=== PATIENT | male | born 1985 | race Caucasian/White ===

== ENCOUNTER 2019-01-31 23:06 | Inpatient (IN) ==
[2019-01-31] MEDS ORDERED: HYDROmorphone INJ 1 MG/ML SYRINGE IV STA (23:26)
[2019-01-31] MEDS ORDERED: ONDANSETRON INJ 2 MG/ML 2 ML VIAL IV STA (23:26)
[2019-01-31] MEDS ORDERED: SODIUM CHLORIDE 0.9% 1000ML 1,000 ML IV ONE (23:26)
[2019-01-31] MEDS ORDERED: PIPERACILLIN/TAZOBACTAM 4.5 GM/120 ML BAG IV ONE (23:33)
[2019-01-31] MEDS ORDERED: PIPERACILL/TAZOBAC CONSULT ACTIVE PRN (23:33)
[2019-01-31 23:58] LABS: Basophils # (auto) 0.03 K/uL (0-0.2); Basophils % (auto) 0.2 %; Eosinophils # (auto) 0.01 K/uL (0-0.5); Eosinophils % (auto) 0.1 %; Hematocrit (blood only) 41.2 % (42-52); Hemoglobin 14.5 g/dL (14.0-18.0); Immature Granulocytes # (auto) 0.04 K/uL (0.00-0.02); Immature Granulocytes % (auto) 0.2 %; Lymphocytes # (auto) 0.89 K/uL (1.2-3.4); Lymphocytes % (auto) 4.8 %; Mean Corpuscular Hemoglobin 29.5 pg (25-34); Mean Corpuscular Hgb Conc 35.2 g/dL (32-36); Mean Corpuscular Volume 83.9 fL (80-100); Mean Platelet Volume 10.7 fL (7.4-10.4); Monocytes # (auto) 1.11 K/uL (0.11-0.59); Neutrophils # (auto) 16.42 K/uL (1.4-6.5); Neutrophils % (auto) 88.7 %; Platelet Count 165 K/uL (130-400); RDW Coefficient of Variation 13.3 % (11.5-14.5); RDW Standard Deviation 40.3 fL (36.4-46.3); Red Blood Count 4.91 M/uL (4.7-6.1)
[2019-02-01 00:17] LABS: Albumin Level 3.9 gm/dl (3.4-5.0); BUN Creatinine Ratio 11.3 (10-20); Bilirubin Direct 0.4 mg/dl (0-0.2); Calcium 9.3 mg/dl (8.5-10.1); Creatinine Clr Calc Pharmacy 128.7 ml/min; Est GFR (African American) 122.1; Est GFR (Non-African American) 105.4; Potassium 3.4 mmol/L (3.5-5.1)
[2019-02-01] MEDS ORDERED: HYDROmorphone INJ 1 MG/ML SYRINGE IV STA (00:18)
[2019-02-01 00:20] LABS: Bilirubin,Total 2.3 mg/dl (0.2-1); Total Protein 7.3 gm/dl (6.4-8.2)
[2019-02-01 00:38] LABS: Appearance Urine Clear (Clear); Bacteria Urine Automated Negative (Negative); Bilirubin Urine Negative (Negative); Blood Urine Negative (Negative); Color Urine Yellow; Glucose Urine UA Negative (Negative); Leukocyte Esterase Urine 1+ (Negative); Nitrite Urine Negative (Negative); Protein Urine Negative (Negative); RBC Urine Automated 0-4 /hpf (0-4); Urobilinogen Urine Negative (Negative)
[2019-02-01 00:41] LABS: Ketones Urine 3+ (Negative)
[2019-02-01] MEDS ORDERED: SODIUM CHLORIDE 0.9% 1000ML 1,000 ML IV ONE (00:56)
[2019-02-01] MEDS ORDERED: ACETAMINOPHEN 325 MG TAB PO PRN (01:41)
[2019-02-01] MEDS ORDERED: POTASSIUM CHLORIDE 20 MEQ TABCR PO STA (01:41)
[2019-02-01] MEDS ORDERED: PIPERACILL/TAZOBAC CONSULT ACTIVE PRN (01:41)
[2019-02-01] MEDS: D5W AND NSS 1,000 ML IV SCH ×3 (02:18→19:30)
--- NOTE | 2019-02-01 02:44 | History and Physical Report ---
DATE OF ADMISSION: 02/01/2019 CHIEF COMPLAINT: Acute sigmoid diverticulitis. HISTORY OF PRESENT ILLNESS: A 33-year-old male with past medical history significant for constipation, history of epilepsy, no longer on medications, the last time he had a seizure was about more than 10 years ago. Since his PCP retired, he is not following with any doctors. He presents with lower abdominal pain. The patient developed lower abdominal pain yesterday morning around 4:00, came to the ER around 5:00 a.m. and was diagnosed with acute sigmoid diverticulitis and his pain improved and he did fine and he was discharged home on Cipro and Flagyl around 11:00 a.m. The patient says after going home, he did okay, but later in the evening in the dinnertime when he ate plain rice and broth, the abdominal pain came back and it was severe than in the morning associated with some nausea, feeling sweaty and cold, but denies any fever or chills. The last bowel movement was yesterday morning, it was diarrhea, no blood in the stools or black stools. Says the pain was severe, so he came back here and his white count went up from 15,000 to 18,000. Otherwise hemodynamics are stable, so we are called for admission for IV antibiotics. Currently, the patient's pain is under control. Resting comfortably. Denies any other complaints. Denies any headache, no blurred vision, no dizziness, no runny nose, no sore throat. Appetite is otherwise okay. No chest pain,. Getting short of breath because of pain and when he coughs, has severe pain in the lower abdomen. Normal bladder movements. No hematuria. He says he has some burning micturition. No swelling in the legs, no rash. Otherwise, he is active. Lives with his . ALLERGIES: No known drug allergies. PAST MEDICAL HISTORY: As mentioned above. PAST SURGICAL HISTORY: Denies any surgeries. MEDICATIONS: On Cipro and Flagyl. FAMILY HISTORY: Significant for father has diverticulosis, mother's side of family has colon cancer. SOCIAL HISTORY: Denies smoking, alcohol occasionally. No drug use. REVIEW OF SYSTEMS: As per HPI. Rest of review of systems negative. PHYSICAL EXAMINATION: GENERAL: The patient is of moderate build, not in acute distress. VITAL SIGNS: Temperature 37.2, pulse 76, respiratory rate 16, blood pressure 132/89, oxygen 97% on room air. HEENT: No pallor, no icterus. Pupils equal, round, and reactive to light. NECK: No JVD, no neck masses, no carotid bruits. CARDIOVASCULAR: S1, S2 heard, regular rate and rhythm, no murmur, no gallop. RESPIRATORY SYSTEM: Normal AP diameter. No accessory muscle use. No wheezing, no crackles. ABDOMEN: Soft, bowel sounds present. Diffuse tenderness, more in the lower abdomen. Mild guarding. No rigidity, no rebound tenderness, no distention. CENTRAL NERVOUS SYSTEM: Cranial nerves II-XII grossly intact. Nonfocal. EXTREMITIES: No edema, no erythema. LABORATORY DATA: WBC 8.5, hemoglobin 14.5, hematocrit 41.2, platelets 165. Sodium 136, potassium 3.4, chloride 103, bicarbonate 24, BUN 11, creatinine 0.9, serum glucose 111. Lactate 1, calcium 9.3, total bilirubin 2.3, direct bilirubin 0.4, AST 15, ALT 27, alkaline phosphatase 54, lipase 42. Urinalysis, +3 ketones, +1 leukocyte esterase. IMAGING DATA: CAT scan done yesterday morning shows acute sigmoid diverticulitis. No evidence for drainable peridiverticular abscess. Suspected 4mm the gallbladder polyp. Spleen is borderline enlarged measuring 12.7 cm. ASSESSMENT AND PLAN: This is a 33-year-old male who presents with acute sigmoid diverticulitis. 1. Acute sigmoid diverticulitis: He came with symptoms yesterday morning and CAT scan showed acute sigmoid diverticulitis and discharged on Cipro and Flagyl, but again comes back today night because after eating broth and plain rice in the dinnertime, pain got worse. White count is also increased with leukocytosis on the labs in the ER. We will keep him n.p.o., IV fluids, IV pain medications p.r.n., IV antiemetics p.r.n. We will start him on IV Zosyn and monitor in the medical floor. Consult surgery. Once discharged he needs to follow up with GI for colonoscopy in 6-8 weeks. 2. History of epilepsy. No longer on medications, last episode more than 10 years ago. 3. Gallbladder polyp on the CAT scan done in the morning. We will do ultrasound to confirm it. 4. Borderline splenomegaly on CAT scan in the morning. We will follow the ultrasound for confirmation. 5. Mild elevation of bilirubin. No transaminase elevation Follow the repeat labs.Gilbert's? 6. Possible urinary tract infection. . Antibiotics as above. We will follow the cultures. 7. Deep venous thrombosis prophylaxis, sequential compression devices. DISPOSITION: Admit to medical floor. Expect to discharge home and follow with his family doctor. Level 1 full code. MTDD
[2019-02-01] MEDS: PIPERACILLIN/TAZOBACTAM 3.375 GM in DEXTROSE 5% 100 ML IV SCH ×3 (02:53→19:31)
[2019-02-01] MEDS: MoRPHine SULFATE 4 MG/ML 1 ML CARP\\VIAL IV PRN ×3 (03:08→09:20)
--- NOTE | 2019-02-01 04:00 | Emergency Department Note ---
Entered by Maria Luisa Garzon acting as a scribe for Dmitriy Acuña MD ED Provider Note Name: Roosevelt Lamas Age: 33 M Arrives Via: Personal transportation Informant: Patient and Father CC: abdominal pain HPI: 33 year old male arrives for evaluation of worsening diverticulitis that was diagnosed this morning within a prior visit to the ER. The patient states that when he went home after discharge he ate white rice and broth that made worsened his pain. The patient states that the onset of his symptoms was at 1200 on Thursday. The patient reports feeling nauseous but did not vomit. The patient states he has not diarrhea since 0400 and did not observe blood in his stool. The patient states that he had abdominal pain that was similar, however this was related to constipation. The patient states that he has been experiencing shortness of breath and back pain that was not present during his earlier visit. The patient denies fever, leg pain, leg swelling, headaches, observed bumps chest pain or rash. The patient expresses that his bowel movements have not been the same since. The patient's father expresses that he has had minor diverticulitis and two colonoscopies. The patient's father states that the patient had a diet change a month ago that resulted in the patient losing 15 pounds. The patient denies the use of alcohol or smoking. The patient denies inhalation of unusual fumes. 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 ROS: See above HPI for pertinent positives & negatives. A total of 10 systems reviewed and were otherwise negative. Past Medical History: Polyp of gallbladder, serum total bilirubin elevated, splenomegaly Past Surgical History: None reported Family History: Slight diverticulitis (Farther), Colon cancer (Mother) Social History: None smoker Home Medications: Ciprofloxacin, metronidazole Allergies No known allergies Physical: Vitals: BP 151/73, P 86, R 20, O2 97% on RA , Temp 37.2 C Exam: GENERAL: Patient is uncomfortable appearing and in moderate distress. EYES: No scleral icterus, unremarkable pupils. ENT: Mucous membranes moist, no nasal congestion. NECK: No masses appreciated, no meningismus, trachea is midline. RESPIRATORY: No dyspnea. Clear to auscultation and equal bilaterally. No wheeze, no rhonchi. CARDIOVASCULAR: Regular rate and rhythm. No murmurs, rubs, gallops appreciated. GASTROINTESTINAL: Abdomen soft, lower abdominal tenderness to palpation, no peritonitis. Bowel sounds positive. No masses appreciated. BACK: No midline tenderness, no CVA tenderness EXTREMITIES: Normal motion all extremities, no cyanosis, no edema. NEUROLOGIC: Alert and oriented, no acute motor or sensory deficits, no focal weakness, cranial nerves grossly intact. SKIN: No rash, no jaundice, no diaphoresis. ED Course: Prior Medical Record, Triage/Nursing Notes, Medications, Allergies reviewed by Me Vital Signs: reviewed and remarkable for HTN Labs: Reviewed and remarkable for elevated WBC Interventions: Saline Lock, NSS Bolus, Zosyn 4.5gm IV, Dilaudid 1mg IV x 2, Zosyn 4mg IV Imaging: Reviewed morning imaging - ct abdo/pelv with diverticulitis EKG: none Blood pressure: With pain controlled Normal. No Referral necessary Course: 2318: Past medical records reviewed. The patient was evaluated in room A12. A complete history and physical exam was performed. 2348: I reassessed the patient who is resting. A blood culture was obtained, antibiotics were administered and patient is receiving pain medications. 0015: I reassessed the patient whose pain has mildly improved. The patient did ask for more pain medication 0019: I reviewed the [facility]'s [facility] He will evaluate the patient for further management. Consults: 0019: I reviewed the patient's [facility] He will evaluate the patient for further management. Disposition: Referred to: PCP/[facility] Dr[facility] Mtz. Condition: Good. Hospitalization Prescriptions: None. Differentials: appendicitis, diverticulitis, PUD, biliary pathology, UTI, pancreatitis, obstruction, mesenteric ischemia, aortic pathology, infections, inflammatory bowel disease, renal colic, as well as others were entertained. Medical Decision Making: Pleasant 33 yr old male with acute diverticulitis started on Cipro/Flagyl this morning though pain continues throughout day returns this evening for evaluation. WBC increasing and requiring increased pain medications. No true peritonitis on exam and without fever nor hypotension would hold off on repeat imaging at this time. Zosyn ordered. Vitals stable and pain controlled. Hospitalist in to evaluate for further management. Impression: Diverticulitis, Leukocytosis and failure outpatient treatment The scribe's documentation has been prepared under my direction and personally reviewed by me in its entirety. I confirm that the note above accurately reflects all work, treatment, procedures, and medical decision making performed by me. Dmitriy Acuña MD Impression & Plan Diverticulitis of sigmoid colon, Leukocytosis, Failure of outpatient treatment Past Med/Surg History Social History Preferred Language: [place] Communication Ability: Effective [place] Required: No Beliefs That Will Affect Care: None marital status: Current Living Situation: Spouse current occupational status: employed Feels Safe at Home: Yes Safety Concerns: Feels Safe At This Time Smoking Status: Never smoker Hx Alcohol Use: Yes Alcohol type: beer, wine and hard liquor Hx Substance Use: No Results & Data Vital Signs Vital Signs - 24 hr 01/31/19 23:12 01/31/19 23:48 02/01/19 00:55 Temperature 37.2 C Temperature Source Oral Sepsis Recent Fever Within 48 Hours No Sepsis Action Taken by Nursing No Action Required Pulse Rate 86 Pulse Rate [Right Finger] 76 71 Pulse Rhythm Regular Pulse Rhythm [Right Finger] Regular Regular Pulse Strength Normal Pulse Strength [Right Finger] Normal Normal Respiratory Rate 20 16 16 Respiratory Effort / Characteristics Non-Labored Spontaneous Non-Labored Respiratory Depth Normal Normal Normal Respiratory Pattern Regular Regular Blood Pressure 151/73 H Blood Pressure [Right Arm] 132/89 132/81 Blood Pressure Mean 99 Blood Pressure Mean [Right Arm] 103 98 Blood Pressure Position Sitting Blood Pressure Position [Right Arm] Sitting Lying Pulse Oximetry 97 97 99 Oxygen Delivery Method Room Air Room Air Room Air Laboratory Data Result diagrams: 01/31/19 23:40 01/31/19 23:40 Lab Results 01/31/19 01/31/19 01/31/19 Range/Units 23:40 23:40 23:40 WBC 18.50 H (4.8-10.8) K/uL RBC 4.91 (4.7-6.1) M/uL Hgb 14.5 (14.0-18.0) g/dL Hct 41.2 L (42-52) % MCV 83.9 (80-100) fL MCH 29.5 (25-34) pg MCHC 35.2 (32-36) g/dL RDW Std Deviation 40.3 (36.4-46.3) fL RDW Coeff of Heath 13.3 (11.5-14.5) % Plt Count 165 (130-400) K/uL MPV 10.7 H (7.4-10.4) fL Immature Gran % (Auto) 0.2 % Neut % (Auto) 88.7 % Lymph % (Auto) 4.8 % [place] % (Auto) 6.0 % Eos % (Auto) 0.1 % Baso % (Auto) 0.2 % Immature Gran # (Auto) 0.04 H (0.00-0.02) K/uL Neut # (Auto) 16.42 H (1.4-6.5) K/uL Lymph # (Auto) 0.89 L (1.2-3.4) K/uL [place] # (Auto) 1.11 H (0.11-0.59) K/uL Eos # (Auto) 0.01 (0-0.5) K/uL Baso # (Auto) 0.03 (0-0.2) K/uL Sodium 136 (136-145) mmol/L Potassium 3.4 L (3.5-5.1) mmol/L Chloride 103 (98-107) mmol/L Carbon Dioxide 24 (21-32) mmol/L Anion Gap 9.0 (3-11) BUN 11 (7-18) mg/dl Creatinine 0.94 (0.6-1.4) mg/dl Est Cr Clr Drug Dosing 128.7 ml/min Est GFR ( Amer) 122.1 Est GFR (Non-Af Amer) 105.4 BUN/Creatinine Ratio 11.3 (10-20) Glucose 111 H (70-99) mg/dl Lactate 1.0 (0.4-2.0) mmol/L Calcium 9.3 (8.5-10.1) mg/dl Total Bilirubin 2.3 H (0.2-1) mg/dl Direct Bilirubin 0.4 H (0-0.2) mg/dl AST 15 (15-37) U/L ALT 27 (12-78) U/L Alkaline Phosphatase 54 (45-117) U/L Total Protein 7.3 (6.4-8.2) gm/dl Albumin 3.9 (3.4-5.0) gm/dl Lipase 42 L (73-393) U/L Urine Color Urine Appearance (Clear) Urine pH (4.5-7.5) Ur Specific [place] (1.000-1.030) Urine Protein (Negative) Urine Glucose (UA) (Negative) Urine Ketones (Negative) Urine Blood (Negative) Urine Nitrite (Negative) Urine Bilirubin (Negative) Urine Urobilinogen (Negative) Ur Leukocyte Esterase (Negative) Urine WBC (Auto) (0-5) /hpf Urine RBC (Auto) (0-4) /hpf U Hyaline Cast (Auto) (0-5) /lpf U Epithel Cells (Auto) (0-5) /lpf Urine Bacteria (Auto) (Negative) 02/01/19 Range/Units 00:26 WBC (4.8-10.8) K/uL RBC (4.7-6.1) M/uL Hgb (14.0-18.0) g/dL Hct (42-52) % MCV (80-100) fL MCH (25-34) pg MCHC (32-36) g/dL RDW Std Deviation (36.4-46.3) fL RDW Coeff of Heath (11.5-14.5) % Plt Count (130-400) K/uL MPV (7.4-10.4) fL Immature Gran % (Auto) % Neut % (Auto) % Lymph % (Auto) % [place] % (Auto) % Eos % (Auto) % Baso % (Auto) % Immature Gran # (Auto) (0.00-0.02) K/uL Neut # (Auto) (1.4-6.5) K/uL Lymph # (Auto) (1.2-3.4) K/uL [place] # (Auto) (0.11-0.59) K/uL Eos # (Auto) (0-0.5) K/uL Baso # (Auto) (0-0.2) K/uL Sodium (136-145) mmol/L Potassium (3.5-5.1) mmol/L Chloride (98-107) mmol/L Carbon Dioxide (21-32) mmol/L Anion Gap (3-11) BUN (7-18) mg/dl Creatinine (0.6-1.4) mg/dl Est Cr Clr Drug Dosing ml/min Est GFR ( Amer) Est GFR (Non-Af Amer) BUN/Creatinine Ratio (10-20) Glucose (70-99) mg/dl Lactate (0.4-2.0) mmol/L Calcium (8.5-10.1) mg/dl Total Bilirubin (0.2-1) mg/dl Direct Bilirubin (0-0.2) mg/dl AST (15-37) U/L ALT (12-78) U/L Alkaline Phosphatase (45-117) U/L Total Protein (6.4-8.2) gm/dl Albumin (3.4-5.0) gm/dl Lipase (73-393) U/L Urine Color Yellow Urine Appearance Clear (Clear) Urine pH 5.0 (4.5-7.5) Ur Specific [place] 1.020 (1.000-1.030) Urine Protein Negative (Negative) Urine Glucose (UA) Negative (Negative) Urine Ketones 3+ H (Negative) Urine Blood Negative (Negative) Urine Nitrite Negative (Negative) Urine Bilirubin Negative (Negative) Urine Urobilinogen Negative (Negative) Ur Leukocyte Esterase 1+ H (Negative) Urine WBC (Auto) 1-5 (0-5) /hpf Urine RBC (Auto) 0-4 (0-4) /hpf U Hyaline Cast (Auto) 5-10 H (0-5) /lpf U Epithel Cells (Auto) 10-20 H (0-5) /lpf Urine Bacteria (Auto) Negative (Negative) Administered Medications Dextrose/Sodium Chloride (D5w And Nss) 1,000 mls @ 125 mls/hr IV .Q8H [facility] Stop: 03/03/19 01:40 Last Admin: 02/01/19 02:18 Dose: 125 mls/hr Documented by: [id number] Piperacillin Sod/Tazobactam (Sod 3.375 gm/ Dextrose) 115 mls @ 28.75 mls/hr IV Q8H [facility]; Protocol Stop: 02/11/19 03:59 Last Admin: 02/01/19 02:53 Dose: 28.8 mls/hr Documented by: [id number] Morphine Sulfate (Morphine Sulfate) 3 mg IV Q3H PRN PRN Reason: Pain Stop: 02/15/19 01:40 Last Admin: 02/01/19 03:08 Dose: 3 mg Documented by: [id number] Discontinued Medications Hydromorphone HCl (Dilaudid) 1 mg IV NOW STA Stop: 01/31/19 23:27 Last Admin: 01/31/19 23:47 Dose: 1 mg Documented by: [id number] Hydromorphone HCl (Dilaudid) 1 mg IV NOW STA Stop: 02/01/19 00:19 Last Admin: 02/01/19 00:27 Dose: 1 mg Documented by: [id number] Sodium Chloride (Nss 1000ml) 1,000 mls @ 999 mls/hr IV .Q1H1M ONE Stop: 02/01/19 00:26 Last Infusion: 02/01/19 01:24 Dose: 0 mls/hr Documented by: [id number] Admin: 01/31/19 23:46 Dose: 999 mls/hr Documented by: [id number] Piperacillin Sod/Tazobactam Sod (Zosyn) 4.5 gm in 120 mls @ 240 mls/hr IV NOW ONE Stop: 02/01/19 00:02 Last Infusion: 02/01/19 00:37 Dose: 0 mls/hr Documented by: [id number] Admin: 01/31/19 23:46 Dose: 240 mls/hr Documented by: [id number] Sodium Chloride (Nss 1000ml) 1,000 mls @ 999 mls/hr IV .Q1H1M ONE Stop: 02/01/19 01:56 Last Infusion: 02/01/19 01:51 Dose: 0 mls/hr Documented by: [id number] Admin: 02/01/19 00:59 Dose: 999 mls/hr Documented by: [id number] Ondansetron HCl (Zofran) 4 mg IV NOW STA Stop: 01/31/19 23:27 Last Admin: 01/31/19 23:46 Dose: 4 mg Documented by: [id number] Potassium Chloride (Klor-Con M20) 20 meq PO NOW STA Stop: 02/01/19 01:42 Last Admin: 02/01/19 02:53 Dose: 20 meq Documented by: [id number] Medical Decision Making Laboratory Data Result diagrams: 01/31/19 23:40 01/31/19 23:40 Lab Results 01/31/19 01/31/19 01/31/19 Range/Units 23:40 23:40 23:40 WBC 18.50 H (4.8-10.8) K/uL RBC 4.91 (4.7-6.1) M/uL Hgb 14.5 (14.0-18.0) g/dL Hct 41.2 L (42-52) % MCV 83.9 (80-100) fL MCH 29.5 (25-34) pg MCHC 35.2 (32-36) g/dL RDW Std Deviation 40.3 (36.4-46.3) fL RDW Coeff of Heath 13.3 (11.5-14.5) % Plt Count 165 (130-400) K/uL MPV 10.7 H (7.4-10.4) fL Immature Gran % (Auto) 0.2 % Neut % (Auto) 88.7 % Lymph % (Auto) 4.8 % [place] % (Auto) 6.0 % Eos % (Auto) 0.1 % Baso % (Auto) 0.2 % Immature Gran # (Auto) 0.04 H (0.00-0.02) K/uL Neut # (Auto) 16.42 H (1.4-6.5) K/uL Lymph # (Auto) 0.89 L (1.2-3.4) K/uL [place] # (Auto) 1.11 H (0.11-0.59) K/uL Eos # (Auto) 0.01 (0-0.5) K/uL Baso # (Auto) 0.03 (0-0.2) K/uL Sodium 136 (136-145) mmol/L Potassium 3.4 L (3.5-5.1) mmol/L Chloride 103 (98-107) mmol/L Carbon Dioxide 24 (21-32) mmol/L Anion Gap 9.0 (3-11) BUN 11 (7-18) mg/dl Creatinine 0.94 (0.6-1.4) mg/dl Est Cr Clr Drug Dosing 128.7 ml/min Est GFR ( Amer) 122.1 Est GFR (Non-Af Amer) 105.4 BUN/Creatinine Ratio 11.3 (10-20) Glucose 111 H (70-99) mg/dl Lactate 1.0 (0.4-2.0) mmol/L Calcium 9.3 (8.5-10.1) mg/dl Total Bilirubin 2.3 H (0.2-1) mg/dl Direct Bilirubin 0.4 H (0-0.2) mg/dl AST 15 (15-37) U/L ALT 27 (12-78) U/L Alkaline Phosphatase 54 (45-117) U/L Total Protein 7.3 (6.4-8.2) gm/dl Albumin 3.9 (3.4-5.0) gm/dl Lipase 42 L (73-393) U/L Urine Color Urine Appearance (Clear) Urine pH (4.5-7.5) Ur Specific [place] (1.000-1.030) Urine Protein (Negative) Urine Glucose (UA) (Negative) Urine Ketones (Negative) Urine Blood (Negative) Urine Nitrite (Negative) Urine Bilirubin (Negative) Urine Urobilinogen (Negative) Ur Leukocyte Esterase (Negative) Urine WBC (Auto) (0-5) /hpf Urine RBC (Auto) (0-4) /hpf U Hyaline Cast (Auto) (0-5) /lpf U Epithel Cells (Auto) (0-5) /lpf Urine Bacteria (Auto) (Negative) 02/01/19 Range/Units 00:26 WBC (4.8-10.8) K/uL RBC (4.7-6.1) M/uL Hgb (14.0-18.0) g/dL Hct (42-52) % MCV (80-100) fL MCH (25-34) pg MCHC (32-36) g/dL RDW Std Deviation (36.4-46.3) fL RDW Coeff of Heath (11.5-14.5) % Plt Count (130-400) K/uL MPV (7.4-10.4) fL Immature Gran % (Auto) % Neut % (Auto) % Lymph % (Auto) % [place] % (Auto) % Eos % (Auto) % Baso % (Auto) % Immature Gran # (Auto) (0.00-0.02) K/uL Neut # (Auto) (1.4-6.5) K/uL Lymph # (Auto) (1.2-3.4) K/uL [place] # (Auto) (0.11-0.59) K/uL Eos # (Auto) (0-0.5) K/uL Baso # (Auto) (0-0.2) K/uL Sodium (136-145) mmol/L Potassium (3.5-5.1) mmol/L Chloride (98-107) mmol/L Carbon Dioxide (21-32) mmol/L Anion Gap (3-11) BUN (7-18) mg/dl Creatinine (0.6-1.4) mg/dl Est Cr Clr Drug Dosing ml/min Est GFR ( Amer) Est GFR (Non-Af Amer) BUN/Creatinine Ratio (10-20) Glucose (70-99) mg/dl Lactate (0.4-2.0) mmol/L Calcium (8.5-10.1) mg/dl Total Bilirubin (0.2-1) mg/dl Direct Bilirubin (0-0.2) mg/dl AST (15-37) U/L ALT (12-78) U/L Alkaline Phosphatase (45-117) U/L Total Protein (6.4-8.2) gm/dl Albumin (3.4-5.0) gm/dl Lipase (73-393) U/L Urine Color Yellow Urine Appearance Clear (Clear) Urine pH 5.0 (4.5-7.5) Ur Specific [place] 1.020 (1.000-1.030) Urine Protein Negative (Negative) Urine Glucose (UA) Negative (Negative) Urine Ketones 3+ H (Negative) Urine Blood Negative (Negative) Urine Nitrite Negative (Negative) Urine Bilirubin Negative (Negative) Urine Urobilinogen Negative (Negative) Ur Leukocyte Esterase 1+ H (Negative) Urine WBC (Auto) 1-5 (0-5) /hpf Urine RBC (Auto) 0-4 (0-4) /hpf U Hyaline Cast (Auto) 5-10 H (0-5) /lpf U Epithel Cells (Auto) 10-20 H (0-5) /lpf Urine Bacteria (Auto) Negative (Negative) MDM Narrative Discharge Plan Visit Data *Final* Discharge Date/Time: 02/01/19 01:26 Chief Complaint: Abdominal Pain Stated Complaint: severe stomach pain/ trouble breathing ED Provider: Dmitriy Acuña Discharge Problem: Diverticulitis of sigmoid colon, Leukocytosis, Failure of outpatient treatment Patient Disposition: Admitted As Inpatient Discharge Instructions Interventions: ED Discharge Assessment Last Done: 02/01/19 01:26 Discharge Problem: Leukocytosis Qualifiers: Leukocytosis type: unspecified Qualified Code(s): D72.829 - Elevated white blood cell count, unspecified The scribe's documentation has been prepared under my direction and personally reviewed by me in its entirety. I confirm that the note above accurately reflects all work, treatment, procedures, and medical decision making performed by me.
[2019-02-01 07:24] LABS: Basophils # (auto) 0.01 K/uL (0-0.2); Basophils % (auto) 0.1 %; Eosinophils # (auto) 0.03 K/uL (0-0.5); Eosinophils % (auto) 0.2 %; Hematocrit (blood only) 36.5 % (42-52); Hemoglobin 12.3 g/dL (14.0-18.0); Immature Granulocytes # (auto) 0.03 K/uL (0.00-0.02); Immature Granulocytes % (auto) 0.2 %; Lymphocytes # (auto) 0.89 K/uL (1.2-3.4); Lymphocytes % (auto) 6.9 %; Mean Corpuscular Hemoglobin 28.9 pg (25-34); Mean Corpuscular Hgb Conc 33.7 g/dL (32-36); Mean Corpuscular Volume 85.9 fL (80-100); Mean Platelet Volume 10.5 fL (7.4-10.4); Monocytes # (auto) 1.03 K/uL (0.11-0.59); Neutrophils # (auto) 10.83 K/uL (1.4-6.5); Neutrophils % (auto) 84.6 %; Platelet Count 142 K/uL (130-400); RDW Coefficient of Variation 13.6 % (11.5-14.5); RDW Standard Deviation 42.5 fL (36.4-46.3); Red Blood Count 4.25 M/uL (4.7-6.1); White Blood Count 12.82 K/uL (4.8-10.8)
[2019-02-01 07:59] LABS: Albumin Level 3.1 gm/dl (3.4-5.0); BUN Creatinine Ratio 6.8 (10-20); Bilirubin Direct 0.3 mg/dl (0-0.2); Calcium 8.7 mg/dl (8.5-10.1); Creatinine Clr Calc Pharmacy 119.8 ml/min; Est GFR (Non-African American) 96.6; Potassium 3.6 mmol/L (3.5-5.1)
[2019-02-01 08:02] LABS: Bilirubin,Total 2.1 mg/dl (0.2-1); Total Protein 6.2 gm/dl (6.4-8.2)
--- NOTE | 2019-02-01 08:50 | Ultrasound Report ---
US gallbladder HISTORY: 33 years-old Male gallbladder polyp follow-up study in a patient with reported gallbladder polyp COMPARISON: CT abdomen and pelvis 01/31/2019 TECHNIQUE: Multiple real-time sonographic images of the abdominal right upper quadrant were obtained assessing grayscale appearance and color flow FINDINGS: Visualized pancreas is unremarkable. The liver is within normal limits without focal mass or intrahep atic biliary ductal dilation. 7 x 4 mm echogenic nonshadowing focus along the nondependent gallbladde r wall suggestive of a polyp. No shadowing cholelithiasis, wall thickening or pericholecystic fluid. Common bile duct is normal, 5 mm. Imaged right kidney is unremarkable without hydronephrosis. Spleen is mildly enlarged, 13.3 cm. IMPRESSION: 1. 7 x 4 mm gallbladder polyp. Follow-up abdominal ultrasound in 6 months is recommended to further e valuate. 2. No cholelithiasis or sonographic evidence of acute cholecystitis. 3. No biliary ductal dilation. The above report was generated using voice recognition software. It may contain grammatical, syntax o r spelling errors. Electronically signed by: Luis Alfredo Segura M.D. 02/01/2019 8:48 AM
[2019-02-01] MEDS: ACETAMINOPHEN 1,000 MG/100 ML VIAL IV SCH ×2 (11:29→19:30)
--- NOTE | 2019-02-01 12:23 | Surgery Consultation ---
Date of Consultation February 01, 2019 Assessment & Plan (1) Diverticulitis of sigmoid colon: pt is a 33 year-old male who was admitted to Hospital for acute diverticulitis, IMP: acute RUQ pain, acute diverticulitis, base on pt had RUQ pain with (T) bili 2.1 I recommend to do MRCP to R/O gallbladder disease, pt agrees with plan, I agree with conservative treatment acute diverticulitis plan, repeat labs in am, will F/U (2) RUQ abdominal pain: History of Present Illness Attending Physician: Ana Tubbs DO CHIEF COMPLAINT: Acute sigmoid diverticulitis. HISTORY OF PRESENT ILLNESS: A 33-year-old male with past medical history significant for constipation, history of epilepsy, no longer on medications, the last time he had a seizure was about more than 10 years ago. Since his PCP retired, he is not following with any doctors. He presents with lower abdominal pain. The patient developed lower abdominal pain yesterday morning around 4:00, came to the ER around 5:00 a.m. and was diagnosed with acute sigmoid diverticulitis and his pain improved and he did fine and he was discharged home on Cipro and Flagyl around 11:00 a.m. The patient says after going home, he did okay, but later in the evening in the dinnertime when he ate plain rice and broth, the abdominal pain came back and it was severe than in the morning associated with some nausea, feeling sweaty and cold, but denies any fever or chills. The last bowel movement was yesterday morning, it was diarrhea, no blood in the stools or black stools. Says the pain was severe, so he came back here and his white count went up from 15,000 to 18,000. Otherwise hemodynamics are stable, so we are called for admission for IV antibiotics. Currently, the patient's pain is under control. Resting comfortably. Denies any other complaints. Denies any headache, no blurred vision, no dizziness, no runny nose, no sore throat. Appetite is otherwise okay. No chest pain,. Getting short of breath because of pain and when he coughs, has severe pain in the lower abdomen. Normal bladder movements. No hematuria. He says he has some burning micturition. No swelling in the legs, no rash. Otherwise, he is active. Lives with his . I ( Yvonne Paulino MD) reviewed pt's H/P with pt, pt is still have upper abdominal pain most pain at RUQ, pt denies nausea, no vomiting, some diarrhea this morning. I also reviewed the labs and CT scan, U/S study. Allergies Allergy/AdvReac Type Severity Reaction Status Date / Time No Known Allergies Allergy Unverified 01/31/19 06:12 Home Medications Home Medications Medication Instructions Recorded Confirmed Type ciprofloxacin HCl [Cipro] 500 mg PO BID #20 tab 01/31/19 01/31/19 Rx metronidazole [Flagyl] 500 mg PO TID #30 tab 01/31/19 01/31/19 Rx Patient History Social History Preferred Language: [place] Communication Ability: Effective Otologist Required: No Beliefs That Will Affect Care: None marital status: Current Living Situation: Spouse current occupational status: employed Feels Safe at Home: Yes Safety Concerns: Feels Safe At This Time Smoking Status: Never smoker Hx Alcohol Use: Yes Alcohol type: beer, wine and hard liquor Hx Substance Use: No Review of Systems Review of Systems: All systems reviewed & are unremarkable except as noted in HPI & below Physical Exam Constitutional: WD/WN, vitals as above well developed and well nourished ENMT: external ear and nose normal, oropharynx normal Neck: trachea midline, no thyromegaly Respiratory: normal respiratory effort, lungs clear to auscultation Cardiovascular: RRR, no murmur, no edema Rate/Rhythm: regular rate and reg ular rhythm Heart Sounds: normal S1 and normal S2 Gastrointestinal (Abdomen): Percussion/Palpation: abdomen soft most tenderness T RUQ area, no rebound pain, BS +, mild tenderness at LLQ area, no rigid, no guarding Musculoskeletal: no cyanosis or clubbing, extremities motor strength 5/5 Skin: no rashes, warm and dry Neurologic: patellar DTR's 2+ bilat, sensation intact Psychiatric: A+Ox3, euthymic affect Orientation: alert and oriented x 3 Results & Data Vital Signs (Past 12 Hours) Vital Signs Temp Pulse Pulse Resp BP BP Pulse Ox 02/01/19 11:03 38.1 C H 81 14 97 02/01/19 07:24 37.1 C 83 14 111/68 96 02/01/19 01:43 37 C 82 16 126/77 95 02/01/19 01:26 71 16 135/80 99 02/01/19 00:55 71 16 132/81 99 Laboratory Results Abnormal lab results 01/31/19 01/31/19 02/01/19 Range/Units 23:40 23:40 00:26 WBC 18.50 H (4.8-10.8) K/uL RBC (4.7-6.1) M/uL Hgb (14.0-18.0) g/dL Hct 41.2 L (42-52) % MPV 10.7 H (7.4-10.4) fL Immature Gran # (Auto) 0.04 H (0.00-0.02) K/uL Neut # (Auto) 16.42 H (1.4-6.5) K/uL Lymph # (Auto) 0.89 L (1.2-3.4) K/uL Daniels # (Auto) 1.11 H (0.11-0.59) K/uL Potassium 3.4 L (3.5-5.1) mmol/L Chloride (98-107) mmol/L BUN/Creatinine Ratio (10-20) Glucose 111 H (70-99) mg/dl Total Bilirubin 2.3 H (0.2-1) mg/dl Direct Bilirubin 0.4 H (0-0.2) mg/dl AST (15-37) U/L Total Protein (6.4-8.2) gm/dl Albumin (3.4-5.0) gm/dl Lipase 42 L (73-393) U/L Urine Ketones 3+ H (Negative) Ur Leukocyte Esterase 1+ H (Negative) U Hyaline Cast (Auto) 5-10 H (0-5) /lpf U Epithel Cells (Auto) 10-20 H (0-5) /lpf 02/01/19 02/01/19 Range/Units 07:15 07:15 WBC 12.82 H (4.8-10.8) K/uL RBC 4.25 L (4.7-6.1) M/uL Hgb 12.3 L (14.0-18.0) g/dL Hct 36.5 L (42-52) % MPV 10.5 H (7.4-10.4) fL Immature Gran # (Auto) 0.03 H (0.00-0.02) K/uL Neut # (Auto) 10.83 H (1.4-6.5) K/uL Lymph # (Auto) 0.89 L (1.2-3.4) K/uL Daniels # (Auto) 1.03 H (0.11-0.59) K/uL Potassium (3.5-5.1) mmol/L Chloride 108 H (98-107) mmol/L BUN/Creatinine Ratio 6.8 L (10-20) Glucose 122 H (70-99) mg/dl Total Bilirubin 2.1 H (0.2-1) mg/dl Direct Bilirubin 0.3 H (0-0.2) mg/dl AST 11 L (15-37) U/L Total Protein 6.2 L (6.4-8.2) gm/dl Albumin 3.1 L (3.4-5.0) gm/dl Lipase (73-393) U/L Urine Ketones (Negative) Ur Leukocyte Esterase (Negative) U Hyaline Cast (Auto) (0-5) /lpf U Epithel Cells (Auto) (0-5) /lpf Diagnostic Findings CT abd pelvis IV con only CLINICAL HISTORY: lower abd pain COMPARISON STUDY: None. TECHNIQUE: The patient was scanned in a dynamic helical fashion during intravenous administration of 94 cc of Optiray 320. A dose lowering technique was utilized adhering to the principles of ALARA. CT DOSE: 928.59 mGycm FINDINGS: Lower chest: The heart is normal in size and configuration, without pericardial effusion. The lung bases and pleural spaces are clear. Liver: The contrast-enhanced liver is normal in size, contour, and attenuation. There is no intrahepatic biliary ductal dilatation. The hepatic veins and portal veins are patent. Gallbladder: There is a suspected 4 mm gallbladder polyp. Spleen: The spleen is borderline enlarged measuring 12.7 cm Pancreas: Unremarkable. Adrenal glands: Unremarkable. Kidneys: There is symmetric renal cortical enhancement. The kidneys are normal in size without hydronephrosis. Bowel: There are no transition zones indicate bowel obstruction. There is sigmoid wall thickening with infiltration of the pericolonic fat. The findings are indicative of acute diverticulitis. There is no evidence for a drainable peridiverticular abscess. On image #304/[id number], there is mild focal dilatation of a small bowel loop. This likely represents a transient peristalsis although a low density polyp dislocation cannot be excluded Peritoneum: There is trace free pelvic fluid. No free intraperitoneal air is visualized. Vasculature: The abdominal aorta is normal in course and caliber. Adenopathy: None. Pelvic viscera: The bladder, and pelvic viscera are unremarkable. Skeletal structures: No destructive osseous lesions are seen. IMPRESSION: 1. Acute sigmoid diverticulitis. US gallbladder HISTORY: 33 years-old Male gallbladder polyp follow-up study in a patient with reported gallbladder polyp COMPARISON: CT abdomen and pelvis 01/31/2019 TECHNIQUE: Multiple real-time sonographic images of the abdominal right upper quadrant were obtained assessing grayscale appearance and color flow FINDINGS: Visualized pancreas is unremarkable. The liver is within normal limits without focal mass or intrahepatic biliary ductal dilation. 7 x 4 mm echogenic nonshadowing focus along the nondependent gallbladder wall suggestive of a polyp. No shadowing cholelithiasis, wall thickening or pericholecystic fluid. Common bile duct is normal, 5 mm. Imaged right kidney is unremarkable without hydronephrosis. Spleen is mildly enlarged, 13.3 cm. IMPRESSION: 1. 7 x 4 mm gallbladder polyp. Follow-up abdominal ultrasound in 6 months is recommended to further evaluate. 2. No cholelithiasis or sonographic evidence of acute cholecystitis. 3. No biliary ductal dilation.
--- NOTE | 2019-02-01 12:29 | Gastrointestinal Consultation ---
Date of Consultation February 01, 2019 Assessment & Plan (1) Diverticulitis of sigmoid colon: Agree with IV antibiotics, eventual DC on po antibiotics when improved, for a total of 10 days. Bowel rest, clear liquids po only. OP colonoscopy in 6-8 weeks to verify presence of diverticulosis and to r/o colon cancer or IBD. Our office will contact the pt to arrange. 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 Present on Admission?: Yes Supervising Physician Co-Signing Physician Notes I performed a history and physical examination of the patient, including specifically on physical exam - soft, nontender abdomen. I have discussed the patient's management with Carlos. Please refer to the nurse practitioner's note for the documented findings and plan of care. 33 yrs old male patient admitted with abdominal pain, found with acute sigmoid diverticulitis on CT scan. Labs showed indirect hyperbilirubinemia. Plan: IV ABx. Bowel rest. OP Colonoscopy. 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 History of Present Illness Reason for Consultation: acute abd pain, +diverticulitis, pain severe Requesting Physician: Dr. Tubbs Attending Physician: Ana Tubbs, DO History of Present Illness Mr. Roosevelt Lamas is a 33 yr old male pt without a PCP (most recently followed by Doug in 2018) who presented to the ED early on 01/31 with LLQ abdominal pain. Because CT was consistent with diverticulitis, he was prescribed oral cipro/flagyl and released. However, very late last night (same day), he returned to the ED and was admitted for failed OP treatment. Though pain was initially L LQ, it has spread to the RLQ and RUQ. Pt describes the LLQ pain as a "pressure," and the RLQ as "sharp." At the time of the onset of pain, he felt constipated but had passed a normal BM about 24 hrs prior. During the pain, early yesterday morning, he passed one very loose BM. He has not had blood in his BMs. He has had nausea but no vomiting. No measured fevers, though he has felt hot and sweaty. He has had 2-3 similar episodes of pain in the past year, each lasting about 3-4 days, each also with loose stools or diarrhea but only 1-2 Bms/day. Work up has shown leukocytosis 15->12, and a mildly elevated bilirubin: T Bili 2.6->2.1, Direct Bili 0.4->0.3. AST, ALT and Alk phos have been normal. CT with IV, no oral on 01/31 suggests acute sigmoid diverticulitis, also a focally dilated area of small bowel. US with a 7x4mm gallbladder polyps but no stones or acute cholecystitis, no biliary ductal dilation. Surgery (Dr. Paulino) has seen the pt and recommends MRCP. GI is consulted for abdominal pain. On exam, he is somewhat diaphoretic but is afebrile and hemodynamically stable w/o any tachycardia or hypotension. He is moderately tender in the LLQ and RLQ with mild RUQ tenderness, no rebound or guarding. Allergies Allergy/AdvReac Type Severity Reaction Status Date / Time No Known Allergies Allergy Unverified 01/31/19 06:12 Home Medications Home Medications Medication Instructions Recorded Confirmed Type ciprofloxacin HCl [Cipro] 500 mg PO BID #20 tab 01/31/19 01/31/19 Rx metronidazole [Flagyl] 500 mg PO TID #30 tab 01/31/19 01/31/19 Rx Patient History Social History Preferred Language: [place] Citizen Communication Ability: Effective Collections Manager Required: No Beliefs That Will Affect Care: None marital status: Current Living Situation: Spouse current occupational status: employed Feels Safe at Home: Yes Safety Concerns: Feels Safe At This Time Smoking Status: Never smoker Hx Alcohol Use: Yes Alcohol type: beer, wine and hard liquor Hx Substance Use: No Review of Systems Review of Systems: ROS: Gen: Denies weakness, fevers, weight loss Eyes: No eye redness, or pain, no recent vision changes Resp: No SOB, no cough Cardio: No palpitations/irregular beats, no chest pain GI: No abdominal pain, no nausea/vomiting : Denies pain on urination Skin: No jaundice, itching or new rashes M/S: no joint pain or redness, though lower back is a little uncomfortable since admission. Physical Exam Constitutional: WD/WN, vitals as above average body habitus and cooperative appears uncomfortable but no acute distress Eyes: PERRL, conjunctivae normal, anicteric sclerae ENMT: external ear and nose normal, oropharynx normal Neck: trachea midline, no thyromegaly Respiratory: normal respiratory effort, lungs clear to auscultation Cardiovascular: RRR, no murmur, no edema Gastrointestinal (Abdomen): Inspection/Auscultation: + hypoactive bowel sounds Percussion/Palpation: + abdomen tender (tender but w/o rebound or guarding in the LLQ, RLQ. Mild tenderness in RUQ.) and abdomen soft Musculoskeletal: Extremities: extremities normal to inspection; no muscle atrophy No visible joint redness or swelling. Skin: normal turgor; no jaundice Neurologic: PERRL, EOMI, accommodation nl, no face palsy, no dysarthria Psychiatric: A+Ox3, euthymic affect Lymphatic: no cervical or axillary lymphadenopathy Results & Data Vital Signs (Past 12 Hours) Vital Signs Temp Pulse Pulse Resp BP BP Pulse Ox 02/01/19 11:03 38.1 C H 81 14 97 02/01/19 07:24 37.1 C 83 14 111/68 96 02/01/19 01:43 37 C 82 16 126/77 95 02/01/19 01:26 71 16 135/80 99 02/01/19 00:55 71 16 132/81 99 Laboratory Results WBC 12, Hb 12.3, Hct 36, Platelets 132. Na 139, K 3.6, BUN 7, Cr 1.01. Diagnostic Findings CT with IV, no oral contrast on 01/31/19: Bowel: There are no transition zones indicate bowel obstruction. There is sigmoid wall thickening with infiltration of the pericolonic fat. The findings are indicative of acute diverticulitis. There is no evidence for a drainable peridiverticular abscess. On image #[id number], there is mild focal dilatation of a small bowel loop. This likely represents a transient peristalsis although a low density polyp dislocation cannot be excluded US 02/01/19: 1. 7 x 4 mm gallbladder polyp. Follow-up abdominal ultrasound in 6 months is recommended to further evaluate. 2. No cholelithiasis or sonographic evidence of acute cholecystitis. 3. No biliary ductal dilation. Medications Administered Zosyn Oxycodone po. Morphine 0.5mg IV Q 1 hr prn. Zofran prn
[2019-02-01] MEDS: HYDROmorphone INJ 0.5 MG/0.5 ML SYR IV PRN ×2 (14:58→20:53)
--- NOTE | 2019-02-01 17:40 | Magnetic Resonance Report ---
Study: MRCP HISTORY: Pain. Nausea. COMPARISON: Ultrasound 02/01/2019. CT 01/31/2019. Findings. Minimal bibasilar dependent atelectasis. Liver spleen and pancreas are uniform. Gallbladder is negative for distention. 4 mm polyp/filling defect distally superior gallbladder wall. The MRCP component of the study demonstrates the pancreatic as well as common bile duct be unremarkab le. The intrahepatic ducts are unremarkable. Bowel pattern is nonobstructive. Kidneys negative for mass or hydronephrosis. IMPRESSION: 1. 4 mm gallbladder polyp. 2. Otherwise normal abdominal MRI. 3. Normal MRCP. Electronically signed by: Cristofer Hinson M.D. 02/01/2019 5:38 PM
[2019-02-01] MEDS: OXYCODONE HCL IR 5 MG TAB (IMMEDIATE RELEASE) PO PRN ×2 (17:49→23:39)
[2019-02-02] MEDS: ACETAMINOPHEN 1,000 MG/100 ML VIAL IV SCH ×3 (03:15→19:03)
[2019-02-02] MEDS: PIPERACILLIN/TAZOBACTAM 3.375 GM in DEXTROSE 5% 100 ML IV SCH ×3 (03:38→19:29)
[2019-02-02] MEDS: D5W AND NSS 1,000 ML IV SCH ×3 (03:38→20:11)
[2019-02-02] MEDS: HYDROmorphone INJ 0.5 MG/0.5 ML SYR IV PRN ×3 (05:27→22:34)
[2019-02-02 06:56] LABS: Hematocrit (blood only) 36.8 % (42-52); Hemoglobin 12.3 g/dL (14.0-18.0); Mean Corpuscular Hgb Conc 33.4 g/dL (32-36); Mean Corpuscular Volume 86.8 fL (80-100); Mean Platelet Volume 10.8 fL (7.4-10.4); Platelet Count 146 K/uL (130-400); RDW Coefficient of Variation 13.8 % (11.5-14.5); Red Blood Count 4.24 M/uL (4.7-6.1); White Blood Count 9.47 K/uL (4.8-10.8)
[2019-02-02 07:28] LABS: Albumin Level 2.8 gm/dl (3.4-5.0); BUN Creatinine Ratio 5.1 (10-20); Calcium 8.8 mg/dl (8.5-10.1); Creatinine Clr Calc Pharmacy 127.4 ml/min; Est GFR (African American) 120.6; Potassium 3.4 mmol/L (3.5-5.1)
[2019-02-02 07:32] LABS: Albumin Globulin Ratio 0.8 (0.9-2); Bilirubin,Total 1.2 mg/dl (0.2-1); Globulin 3.4 gm/dl (2.5-4.0); Total Protein 6.2 gm/dl (6.4-8.2)
[2019-02-02] MEDS: OXYCODONE HCL IR 5 MG TAB (IMMEDIATE RELEASE) PO PRN ×3 (07:38→21:19)
--- NOTE | 2019-02-02 11:22 | Hospitalist Progress Note ---
Date of Service February 01, 2019 Assessment & Plan (1) Diverticulitis of sigmoid colon: Zosyn, supportive care. Bowel rest. GI consult requested. MRCP pending with elevated bili and RUQ tenderness. (2) Polyp of gallbladder: Per Surgery recommendations. (3) Serum total bilirubin elevated: Likely Howard. MRCP pending (4) DVT prophylaxis: SCDs/ambulation Full code Dispo-uncertain, pending clinical course. Ana Tubbs DO [facility] Hospitalist Subjective significant pain in lower abdomen and RUQ no nausea or vomiting afebrile mentating well npo Review of Systems Review of Systems: All systems reviewed & are unremarkable except as noted in HPI & below Physical Exam Physical Exam: CONSTITUTIONAL: WNWD, vitals as above, generally well- appearing EYES: normal conjunctivae, no scleral icterus ENT: MMM RESPIRATORY: clear to auscultation bilaterally, no crackles, rales or wheezes, normal respiratory effort CARDIOVASCULAR: regular rate and rhythm, S1 and 2 heard without murmurs, gallops or rubs, no JVD GASTROINTESTINAL: normal bowel sounds, soft, TTP in RUQ, LLQ, RLQ MUSCULOSKELETAL: strength 5/5 throughout, head is normocephalic and atraumatic SKIN: warm and dry NEUROLOGIC: CN 2-12 grossly intact, no sensory deficit, normal cognition, normal speech, no tremor, no gross focal deficits. PSYCHIATRIC: alert cooperative and oriented to person, place and time. Results & Data Vital Signs (Past 12 Hours) Vital Signs Temp Pulse Resp BP Pulse Ox 02/01/19 15:28 37.4 C 76 18 116/65 96 02/01/19 11:03 38.1 C H 81 14 97 02/01/19 07:24 37.1 C 83 14 111/68 96
--- NOTE | 2019-02-02 11:24 | Gastroenterology Progress Note ---
Date of Service February 02, 2019 Assessment & Plan (1) Diverticulitis of sigmoid colon: Agree with IV antibiotics, eventual DC on po antibiotics when improved, for a total of 10 days. Advance diet slowly per surgery and primary services. Because RLQ > LLQ pain would ask surgery to consider possible appendicitis, though pain and leukocytosis are improving on IV antibiotic. OP colonoscopy in 6-8 weeks to verify presence of diverticulosis and to r/o colon cancer or IBD. OP US in 6 months for f/u of gallbladder polyp. Our office will contact the pt to arrange above procedure and imaging. (2) Serum total bilirubin elevated: Gilbert's. Expect elevated (mostly total bili) when fasting. Supervising Physician Co-Signing Physician Notes I performed a history and physical examination of the patient, including specifically on physical exam - soft, nontender abdomen. I have discussed the patient's management with Carlos. Please refer to the nurse practitioner's note for the documented findings and plan of care. pain significantly improved, passing gas and tolerated full liquids. Continue ABx. OP colonoscopy. Recall GI if needed. Subjective Recall that Mr. Roosevelt Lamas is a 33 yr old male admitted with diverticulitis on 01/31. Bili T bili elevation, normal bile ducts on US and MRCP. There is a 7mm GB polyp presents on US. Pt tells me he feels better today. Pain persists but he is able to take deep breaths and ambulated in his room with only mild pain today. No nausea/vomiting. WBC 15->9, afebrile. On zosyn IV. Review of Systems Review of Systems: ROS: Gen: Denies weakness, fevers though has sweating, tells me he typically sweats when sleeping. Eyes: No eye redness, or pain, no recent vision changes Resp: No SOB, no cough Cardio: No palpitations/irregular beats, no chest pain GI: + abdominal pain, no nausea/vomiting : Denies pain on urination Skin: No jaundice, itching or new rashes M/S: no joint pain or redness, though lower back is a little uncomfortable since admission. Physical Exam Constitutional: WD/WN, vitals as above average body habitus and cooperative Eyes: PERRL, conjunctivae normal, anicteric sclerae ENMT: external ear and nose normal, oropharynx normal Neck: trachea midline, no thyromegaly Respiratory: normal respiratory effort, lungs clear to auscultation Cardiovascular: RRR, no murmur, no edema Gastrointestinal (Abdomen): normal bowel sounds, soft, nontender, no hepatosplenomegaly Inspection/Auscultation: normal bowel sounds Percussion/Palpation: + abdomen tender (mild tenderness in the LLQ and RLQ) and abdomen soft Musculoskeletal: Extremities: extremities normal to inspection; no muscle a trophy Skin: normal turgor; no jaundice Neurologic: PERRL, EOMI, accommodation nl, no face palsy, no dysarthria Psychiatric: A+Ox3, euthymic affect Lymphatic: no cervical or axillary lymphadenopathy Results & Data Vital Signs (Past 12 Hours) Vital Signs Temp Pulse Resp BP Pulse Ox 02/02/19 07:41 36.6 C 73 18 116/75 96 02/01/19 23:30 37 C 72 18 111/[address] 01/31: 1. Acute sigmoid diverticulitis. 4mm gallbladder polyp US 02/01: 1. 7 x 4 mm gallbladder polyp. Follow-up abdominal ultrasound in 6 months is recommended to further evaluate. 2. No cholelithiasis or sonographic evidence of acute cholecystitis. 3. No biliary ductal dilation. MRCP 02/01: 1. 4 mm gallbladder polyp. 2. Otherwise normal abdominal MRI. 3. Normal MRCP.
--- NOTE | 2019-02-02 11:43 | Surgery Progress Note ---
Date of Service doing better, less abdominal pain, MRCP - negative for gallbladder disease. February 02, 2019 Assessment & Plan (1) Diverticulitis of sigmoid colon: pt is a 33 year-old male who was admitted to Hospital for acute diverticulitis, IMP: acute RUQ pain, acute diverticulitis, base on pt had RUQ pain with (T) bili 2.1 I recommend to do MRCP to R/O gallbladder disease, pt agrees with plan, I agree with conservative treatment acute diverticulitis plan, repeat labs in am, will F/U 02/02/2019 11:43am clear diet, continue treatment, will F/U (2) RUQ abdominal pain: Subjective Recall that Mr. Roosevelt Lamas is a 33 yr old male admitted with diverticulitis on 01/31. Bili T bili elevation, normal bile ducts on US and MRCP. There is a 7mm GB polyp presents on US. Pt tells me he feels better today. Pain persists but he is able to take deep breaths and ambulated in his room with only mild pain today. No nausea/vomiting. WBC 15->9, afebrile. On zosyn IV. Physical Exam Constitutional: WD/WN, vitals as above well developed and well nourished ENMT: external ear and nose normal, oropharynx normal Neck: trachea midline, no thyromegaly Respiratory: normal respiratory effort, lungs clear to auscultation Cardiovascular: RRR, no murmur, no edema Rate/Rhythm: regular rate and regular rhythm Heart Sounds: normal S1 and normal S2 Gastrointestinal (Abdomen): Percussion/Palpation: abdomen soft Musculoskeletal: no cyanosis or clubbing, extremities motor strength 5/5 Skin: no rashes, warm and dry Neurologic: patellar DTR's 2+ bilat, sensation intact Psychiatric: A+Ox3, euthymic affect Orientation: alert and oriented x 3 Results & Data Vital Signs (Past 12 Hours) Vital Signs Temp Pulse Resp BP Pulse Ox 02/02/19 07:41 36.6 C 73 18 116/75 96
[2019-02-02] MEDS: ENOXAPARIN INJ 40 MG/0.4 ML SYR SQ SCH (13:17)
--- NOTE | 2019-02-02 18:41 | Hospitalist Progress Note ---
Date of Service February 02, 2019 Assessment & Plan (1) Diverticulitis of sigmoid colon: Cont Zosyn and pain control as needed. Watch for constipation. MRCP negative. Elevated indirect bilirubin has resolved indicating likely [place] syndrome. Appreciare GI recs-cont abx for 10 days total. (2) Polyp of gallbladder: Per Surgery recommendations. (3) Serum total bilirubin elevated: Likely [place]. MRCP negative. (4) DVT prophylaxis: SCDs/ambulation Full code Dispo-expect to home when medically stable. Ana Tubbs DO [facility] Hospitalist Subjective Persistent RLQ, RUQ and LLQ pain that just restarted in late morning. Earlier this morning he was feeling better and up walking around the room and getting washed up in the bathroom. Surgery agreed to clears and he feels fine to start this. Afebrile. No nausea. Review of Systems Review of Systems: All systems reviewed & are unremarkable except as noted in HPI & below Physical Exam Physical Exam: CONSTITUTIONAL: WNWD, vitals as above, generally well- appearing EYES: normal conjunctivae, no scleral icterus ENT: MMM RESPIRATORY: clear to auscultation bilaterally, no crackles, rales or wheezes, normal respiratory effort CARDIOVASCULAR: regular rate and rhythm, S1 and 2 heard without murmurs, gallops or rubs, no JVD GASTROINTESTINAL: normal bowel sounds, soft, TTP in RUQ, LLQ, RLQ MUSCULOSKELETAL: strength 5/5 throughout, head is normocephalic and atraumatic SKIN: warm and dry NEUROLOGIC: CN 2-12 grossly intact, no sensory deficit, normal cognition, normal speech, no tremor, no gross focal deficits. PSYCHIATRIC: alert cooperative and oriented to person, place and time Results & Data Vital Signs (Past 12 Hours) Vital Signs Temp Pulse Resp BP Pulse Ox 02/02/19 15:22 37.0 C 86 18 127/78 98 02/02/19 07:41 36.6 C 73 18 116/75 96 Laboratory Results Short CBC 02/02/19 Range/Units 06:28 WBC 9.47 (4.8-10.8) K/uL Hgb 12.3 L (14.0-18.0) g/dL Hct 36.8 L (42-52) % Plt Count 146 (130-400) K/uL BMP 02/02/19 06:28 Sodium 140 Potassium 3.4 L Chloride 108 H Carbon Dioxide 28 BUN 5 L Creatinine 0.95 Glucose 114 H Calcium 8.8 Liver Function 02/02/19 Range/Units 06:28 Total Bilirubin 1.2 H (0.2-1) mg/dl AST 9 L (15-37) U/L ALT 16 (12-78) U/L Alkaline Phosphatase 56 (45-117) U/L Albumin 2.8 L (3.4-5.0) gm/dl Medications Administered Current Inpatient Medications Enoxaparin Sodium (Lovenox) 40 mg SQ Q24H [facility] Stop: 03/04/19 11:59 Last Admin: 02/02/19 13:17 Dose: 40 mg Documented by: Hydromorphone HCl (Dilaudid) 0.5 mg IV Q1H PRN PRN Reason: Severe Pain Stop: 02/15/19 10:36 Last Admin: 02/02/19 11:55 Dose: 0.5 mg Documented by: Dextrose/Sodium Chloride (D5w And Nss) 1,000 mls @ 125 mls/hr IV .Q8H [facility] Stop: 03/03/19 01:40 Last Admin: 02/02/19 11:36 Dose: 125 mls/hr Documented by: Piperacillin Sod/Tazobactam (Sod 3.375 gm/ Dextrose) 115 mls @ 28.75 mls/hr IV Q8H [facility]; Protocol Stop: 02/11/19 03:59 Last Infusion: 02/02/19 15:54 Dose: Infused Documented by: Acetaminophen (Ofirmev) 1,000 mg in 100 mls @ 400 mls/hr IV Q8H [facility] Stop: 02/04/19 10:44 Last Infusion: 02/02/19 11:51 Dose: Infused Documented by: Miscellaneous Information (Consult) 1 ea N/A UD PRN PRN Reason: Consult Stop: 03/03/19 01:40 Ondansetron HCl (Zofran) 4 mg IV Q6H PRN PRN Reason: Nausea Stop: 03/03/19 01:40 Oxycodone HCl (Roxicodone Immediate Rel) 5 mg PO Q6H PRN PRN Reason: Pain Stop: 02/15/19 10:37 Last Admin: 02/02/19 15:26 Dose: 5 mg Documented by:
[2019-02-02] MEDS: ONDANSETRON INJ 2 MG/ML 2 ML VIAL IV PRN (22:34)
[2019-02-03] MEDS: ACETAMINOPHEN 1,000 MG/100 ML VIAL IV SCH ×3 (03:09→20:46)
[2019-02-03] MEDS: D5W AND NSS 1,000 ML IV SCH ×2 (03:12→12:22)
[2019-02-03] MEDS: PIPERACILLIN/TAZOBACTAM 3.375 GM in DEXTROSE 5% 100 ML IV SCH ×2 (03:25→12:22)
[2019-02-03] MEDS ORDERED: POLYETHYLENE (MIRALAX) 17 GM PACK PO PRN (07:10)
--- NOTE | 2019-02-03 08:45 | Surgery Progress Note ---
Date of Service pt is doing better, less abdominal pain, passed BM, no bloody stool, he tolerated clear diet, February 03, 2019 Assessment & Plan (1) Diverticulitis of sigmoid colon: pt is a 33 year-old male who was admitted to Hospital for acute diverticulitis, IMP: acute RUQ pain, acute diverticulitis, base on pt had RUQ pain with (T) bili 2.1 I recommend to do MRCP to R/O gallbladder disease, pt agrees with plan, I agree with conservative treatment acute diverticulitis plan, repeat labs in am, will F/U 02/02/2019 11:43am clear diet, continue treatment, will F/U 02/03/2019 8:43am doing fine, possible pt can be discharged home today or tomorrow, sign off today, please call with questions, Thanks, (2) RUQ abdominal pain: Subjective Persistent RLQ, RUQ and LLQ pain that just restarted in late morning. Earlier this morning he was feeling better and up walking around the room and getting washed up in the bathroom. Surgery agreed to clears and he feels fine to start this. Afebrile. No nausea. Physical Exam Constitutional: WD/WN, vitals as above well developed and well nourished ENMT: external ear and nose normal, oropharynx normal Neck: trachea midline, no thyromegaly Respiratory: normal respiratory effort, lungs clear to auscultation Cardiovascular: RRR, no murmur, no edema Rate/Rhythm: regular rate and regular rhythm Heart Sounds: normal S1 and normal S2 Gastrointestinal (Abdomen): Percussion/Palpation: abdomen soft no tenderness at abdomen, no distend, BS + Musculoskeletal: no cyanosis or clubbing, extremities motor strength 5/5 Skin: no rashes, warm and dry Neurologic: patellar DTR's 2+ bilat, sensation intact Psychiatric: A+Ox3, euthymic affect Orientation: alert and oriented x 3 Results & Data Vital Signs (Past 12 Hours) Vital Signs Temp Pulse Pulse Resp BP Pulse Ox 02/03/19 08:06 36.6 C 84 16 126/86 97 02/02/19 23:30 37.1 C 70 20 129/79 96
[2019-02-03] MEDS: ONDANSETRON INJ 2 MG/ML 2 ML VIAL IV PRN (09:06)
[2019-02-03] MEDS: DOCUSATE SODIUM 100 MG CAP PO SCH ×2 (09:13→20:47)
[2019-02-03] MEDS: OXYCODONE HCL IR 5 MG TAB (IMMEDIATE RELEASE) PO PRN ×3 (09:38→20:48)
[2019-02-03] MEDS: ENOXAPARIN INJ 40 MG/0.4 ML SYR SQ SCH (11:27)
[2019-02-03] MEDS: AMOXICILLIN/CLAVULANATE 875 MG TAB PO SCH ×2 (13:37→20:46)
--- NOTE | 2019-02-03 15:39 | Hospitalist Progress Note ---
Date of Service February 03, 2019 Assessment & Plan (1) Diverticulitis of sigmoid colon: Cont Zosyn and pain control as needed. MRCP negative. Elevated indirect bilirubin has resolved indicating likely [place] syndrome. Appreciate GI input and recommendation Appreciate surgery input and recommendation Bowel movement this morning Symptomatically better Will give oral Augmentin for a total of 10 days Advised more ambulation Acute discharge tomorrow (2) Polyp of gallbladder: Per Surgery recommendations. (3) Serum total bilirubin elevated: Likely secondary to [place] syndrome. MRCP negative. (4) DVT prophylaxis: SCDs/ambulation Full code Dispo-expect to home when medically stable. Subjective 02/03 The patient was seen and examined in medical floor Admitted with abdominal pain that came out to be secondary to sigmoid diverticulitis Still has some pain and distention He moved his bowels this morning Nauseous but no vomiting Advised to more ambulation Review of Systems Review of Systems: All systems reviewed and are unremarkable except as noted below Gastrointestinal: + abdominal pain (Much improved), + bloating and + nausea; no vomiting Physical Exam Physical Exam: No apparent distress at rest Constitutional: well developed and well nourished; no acute distress and not ill appearing Eyes: PERRL, conjunctivae normal, anicteric sclerae ENMT: external ear and nose normal, oropharynx normal Neck: trachea midline, no thyromegaly Respiratory: normal respiratory effort; no respiratory distress Auscultation: lungs clear to auscultation bilaterally Cardiovascular: Rate/Rhythm: regular rate and regular rhythm Heart Sounds: no murmur Gastrointestinal (Abdomen): Inspection/Auscultation: abdomen normal to inspection, + abdomen distended (Soft and mildly tender) and normal bowel sounds (Sluggish) Percussion/Palpation: no guarding Musculoskeletal: No acute arthritis in any joint Neurologic: Alert, awake and oriented x3 Lymphatic: no cervical or axillary lymphadenopathy Results & Data Vital Signs (Past 12 Hours) Vital Signs Temp Pulse Pulse Resp BP BP Pulse Ox 02/03/19 15:14 37.2 C 88 18 132/84 98 02/03/19 11:06 37.2 C 84 20 122/81 97 02/03/19 08:06 36.6 C 84 16 126/86 97 Diagnostic Findings Current Inpatient Medications Amoxicillin/Clavulanate Potassium (Augmentin 875mg) 1 tab PO BIDM [facility] Stop: 02/13/19 12:59 Last Admin: 02/03/19 13:37 Dose: 1 tab Documented by: Docusate Sodium (Colace) 100 mg PO BID [facility] Stop: 03/05/19 08:59 Last Admin: 02/03/19 09:13 Dose: Not Given Documented by: Enoxaparin Sodium (Lovenox) 40 mg SQ Q24H [facility] Stop: 03/04/19 11:59 Last Admin: 02/03/19 11:27 Dose: 40 mg Documented by: Hydromorphone HCl (Dilaudid) 0.5 mg IV Q1H PRN PRN Reason: Severe Pain Stop: 02/15/19 10:36 Last Admin: 02/02/19 22:34 Dose: 0.5 mg Documented by: Acetaminophen (Ofirmev) 1,000 mg in 100 mls @ 400 mls/hr IV Q8H [facility] Stop: 02/04/19 10:44 Last Infusion: 02/03/19 12:21 Dose: Infused Documented by: Lactobacillus Acidophilus (Floranex) 4 tab PO TIDM [facility] Stop: 03/05/19 16:59 Ondansetron HCl (Zofran) 4 mg IV Q6H PRN PRN Reason: Nausea Stop: 03/03/19 01:40 Last Admin: 02/03/19 09:06 Dose: 4 mg Documented by: Oxycodone HCl (Roxicodone Immediate Rel) 5 mg PO Q6H PRN PRN Reason: Pain Stop: 02/15/19 10:37 Last Admin: 02/03/19 15:18 Dose: 5 mg Documented by: Polyethylene Glycol (Miralax Powder Packet) 17 gm PO DAILY PRN PRN Reason: Constipation Stop: 03/05/19 07:09
[2019-02-03] MEDS: LACTOBACILLUS ACIDOPHILUS (FLORANEX) TAB PO SCH (18:07)
[2019-02-03] MEDS: HYDROmorphone INJ 0.5 MG/0.5 ML SYR IV PRN (21:47)
[2019-02-04] MEDS: ACETAMINOPHEN 1,000 MG/100 ML VIAL IV SCH (04:50)
[2019-02-04 05:57] LABS: Hematocrit (blood only) 38.5 % (42-52); Hemoglobin 13.3 g/dL (14.0-18.0); Mean Corpuscular Hgb Conc 34.5 g/dL (32-36); Mean Corpuscular Volume 83.9 fL (80-100); RDW Coefficient of Variation 13.4 % (11.5-14.5); RDW Standard Deviation 41.3 fL (36.4-46.3); Red Blood Count 4.59 M/uL (4.7-6.1); White Blood Count 16.71 K/uL (4.8-10.8)
[2019-02-04 06:14] LABS: Basophils # (auto) 0.04 K/uL (0-0.2); Basophils % (auto) 0.2 %; Eosinophils # (auto) 0.25 K/uL (0-0.5); Eosinophils % (auto) 1.5 %; Immature Granulocytes # (auto) 0.04 K/uL (0.00-0.02); Immature Granulocytes % (auto) 0.2 %; Monocytes # (auto) 1.78 K/uL (0.11-0.59); Monocytes % (auto) 10.7 %; Neutrophils % (auto) 78.4 %; Platelet Count 238 K/uL (130-400)
[2019-02-04 06:23] LABS: Creatinine Clr Calc Pharmacy 172.9 ml/min; Est GFR (African American) 142.7; Est GFR (Non-African American) 123.1; Potassium 2.9 mmol/L (3.5-5.1)
[2019-02-04] MEDS ORDERED: POTASSIUM CHLORIDE 20 MEQ TABCR PO STA ×2 (06:44→08:34)
--- NOTE | 2019-02-04 06:44 | Communication Note ---
Date of Service: February 04, 2019 Made aware by RN of low potassium, WBC of 16 with a.m. lab work loose stools as per RN. No unusual belly pain as per RN. Usual emesis. AP Diarrhea rule out C. difficile Stool C. difficile replace electrolytes, IVF Will relay to AM provider.
[2019-02-04] MEDS ORDERED: MAGNESIUM SULFATE / D5W 1 GM/100 ML BAG IV ONE (06:45)
[2019-02-04] MEDS ORDERED: POTASSIUM CHLORIDE 40 MEQ in SODIUM CHLORIDE 0.9% 1000ML 1,000 ML IV SCH (07:00)
[2019-02-04] MEDS: LACTOBACILLUS ACIDOPHILUS (FLORANEX) TAB PO SCH ×3 (09:01→17:32)
[2019-02-04] MEDS: AMOXICILLIN/CLAVULANATE 875 MG TAB PO SCH ×2 (09:01→17:32)
[2019-02-04] MEDS: ENOXAPARIN INJ 40 MG/0.4 ML SYR SQ SCH (13:01)
[2019-02-04] MEDS: ONDANSETRON INJ 2 MG/ML 2 ML VIAL IV PRN (14:34)
[2019-02-04] MEDS: OXYCODONE HCL IR 5 MG TAB (IMMEDIATE RELEASE) PO PRN (15:53)
--- NOTE | 2019-02-04 16:30 | Hospitalist Progress Note ---
Date of Service February 04, 2019 Assessment & Plan (1) Diverticulitis of sigmoid colon: Cont Zosyn and pain control as needed. MRCP negative. Elevated indirect bilirubin has resolved indicating likely [place] syndrome. Appreciate GI input and recommendation Appreciate surgery input and recommendation Bowel movement this morning Symptomatically better Will give oral Augmentin for a total of 10 days Condition got worse overnight We will continue with current medications Stool has been sent for culture and C. difficile (2) Polyp of gallbladder: Per Surgery recommendations. (3) Serum total bilirubin elevated: Likely secondary to [place] syndrome. MRCP negative. (4) DVT prophylaxis: SCDs/ambulation Full code Dispo-expect to home when medically stable. Subjective 02/03 The patient was seen and examined in medical floor Admitted with abdominal pain that came out to be secondary to sigmoid diverticulitis Still has some pain and distention He moved his bowels this morning Nauseous but no vomiting Advised to more ambulation 02/04 The patient was seen and examined in the medical unit He has been complaining of abdominal distention with nausea and vomiting Bowel has not moved Denies any fever and/or chills Review of Systems Review of Systems: All systems reviewed and are unremarkable except as noted below Gastrointestinal: + abdominal pain (Much improved), + bloating and + nausea; no vomiting Physical Exam Physical Exam: Lying in bed very anxious Constitutional: well developed and well nourished; no acute distress and not ill appearing Eyes: PERRL, conjunctivae normal, anicteric sclerae ENMT: external ear and nose normal, oropharynx normal Neck: trachea midline, no thyromegaly Respiratory: normal respiratory effort; no respiratory distress Auscultation: lungs clear to auscultation bilaterally Cardiovascular: Rate/Rhythm: regular rate and regular rhythm Heart Sounds: no murmur Gastrointestinal (Abdomen): Inspection/Auscultation: abdomen normal to inspection, + abdomen distended (Soft and mildly tender) and normal bowel sounds (Sluggish) Percussion/Palpation: abdomen nontender and no guarding Neurologic: Alert,awake and oriented x3 Lymphatic: no cervical or axillary lymphadenopathy Results & Data Vital Signs (Past 12 Hours) Vital Signs Temp Pulse Resp BP BP Pulse Ox 02/04/19 16:18 97 H 132/86 02/04/19 15:49 37.0 C 02/04/19 15:02 37.8 C H 101 H 18 144/87 H 97 02/04/19 08:05 37.0 C 89 18 131/80 96 Laboratory Results Short CBC 02/04/19 Range/Units 05:18 WBC 16.71 H (4.8-10.8) K/uL Hgb 13.3 L (14.0-18.0) g/dL Hct 38.5 L (42-52) % Plt Count 238 D (130-400) K/uL BMP 02/04/19 05:18 Sodium 138 Potassium 2.9 L Chloride 103 Carbon Dioxide 26 BUN 3 L Creatinine 0.70 Glucose 98 Calcium 9.0 Medications Administered Current Inpatient Medications Amoxicillin/Clavulanate Potassium (Augmentin 875mg) 1 tab PO BIDM [facility] Stop: 02/13/19 12:59 Last Admin: 02/04/19 09:01 Dose: 1 tab Documented by: Enoxaparin Sodium (Lovenox) 40 mg SQ Q24H [facility] Stop: 03/04/19 11:59 Last Admin: 02/04/19 13:01 Dose: 40 mg Documented by: Hydromorphone HCl (Dilaudid) 0.5 mg IV Q1H PRN PRN Reason: Severe Pain Stop: 02/15/19 10:36 Last Admin: 02/03/19 21:47 Dose: 0.5 mg Documented by: Potassium Chloride 40 meq/ (Sodium Chloride) 1,020 mls @ 50 mls/hr IV .[id number] [facility] Stop: 02/05/19 03:23 Last Infusion: 02/04/19 13:23 Dose: 50 mls/hr Documented by: Lactobacillus Acidophilus (Floranex) 4 tab PO TIDM [facility] Stop: 03/05/19 16:59 Last Admin: 02/04/19 13:01 Dose: 4 tab Documented by: Ondansetron HCl (Zofran) 4 mg IV Q6H PRN PRN Reason: Nausea Stop: 03/03/19 01:40 Last Admin: 02/04/19 14:34 Dose: 4 mg Documented by: Oxycodone HCl (Roxicodone Immediate Rel) 5 mg PO Q6H PRN PRN Reason: Pain Stop: 02/15/19 10:37 Last Admin: 02/04/19 15:53 Dose: 5 mg Documented by: Polyethylene Glycol (Miralax Powder Packet) 17 gm PO DAILY PRN PRN Reason: Constipation Stop: 03/05/19 07:09
[2019-02-04] MEDS: NSS + 20MEQ KCL 20 MEQ/1,000 ML BAG IV SCH (17:29)
[2019-02-05] MEDS: HYDROmorphone INJ 0.5 MG/0.5 ML SYR IV PRN ×2 (01:50→18:21)
[2019-02-05] MEDS: NSS + 20MEQ KCL 20 MEQ/1,000 ML BAG IV SCH ×2 (01:50→11:40)
[2019-02-05] MEDS: LACTOBACILLUS ACIDOPHILUS (FLORANEX) TAB PO SCH ×3 (07:25→18:14)
[2019-02-05] MEDS: OXYCODONE HCL IR 5 MG TAB (IMMEDIATE RELEASE) PO PRN ×3 (07:25→22:43)
[2019-02-05] MEDS: AMOXICILLIN/CLAVULANATE 875 MG TAB PO SCH ×2 (07:25→18:36)
[2019-02-05 09:18] LABS: Basophils # (auto) 0.04 K/uL (0-0.2); Basophils % (auto) 0.2 %; Eosinophils # (auto) 0.14 K/uL (0-0.5); Eosinophils % (auto) 0.8 %; Hematocrit (blood only) 37.7 % (42-52); Immature Granulocytes # (auto) 0.09 K/uL (0.00-0.02); Immature Granulocytes % (auto) 0.5 %; Lymphocytes % (auto) 9.5 %; Mean Corpuscular Hemoglobin 29.2 pg (25-34); Mean Corpuscular Hgb Conc 34.5 g/dL (32-36); Mean Corpuscular Volume 84.7 fL (80-100); Mean Platelet Volume 9.5 fL (7.4-10.4); Monocytes # (auto) 1.77 K/uL (0.11-0.59); Monocytes % (auto) 10.5 %; Neutrophils # (auto) 13.22 K/uL (1.4-6.5); Neutrophils % (auto) 78.5 %; Platelet Count 258 K/uL (130-400); RDW Coefficient of Variation 13.7 % (11.5-14.5); RDW Standard Deviation 42.3 fL (36.4-46.3); Red Blood Count 4.45 M/uL (4.7-6.1); White Blood Count 16.86 K/uL (4.8-10.8)
[2019-02-05 09:55] LABS: BUN Creatinine Ratio 7.7 (10-20); Calcium 8.8 mg/dl (8.5-10.1); Creatinine Clr Calc Pharmacy 175.4 ml/min; Est GFR (African American) 143.6; Est GFR (Non-African American) 123.9; Potassium 3.4 mmol/L (3.5-5.1)
[2019-02-05] MEDS: ENOXAPARIN INJ 40 MG/0.4 ML SYR SQ SCH (11:42)
[2019-02-05] MEDS ORDERED: IOVERSOL 100ml IV PRN (15:26)
--- NOTE | 2019-02-05 15:47 | CT Scan Report ---
CT abd pelvis IV con only CLINICAL HISTORY: Diverticular Abscess COMPARISON STUDY: CT scan dated 01/31/2019 TECHNIQUE: The patient was scanned in a dynamic helical fashion during the intravenous administration of 94 cc of Optiray 320. A dose lowering technique was utilized adhering to the principles of ALARA . CT DOSE: 652.55 mGy.cm FINDINGS: Lower chest: There are mild basilar atelectatic changes. There is a trace right pleural effusion Liver: The contrast-enhanced liver is normal in size, contour, and attenuation. There is no intrahepa tic biliary ductal dilatation. The hepatic veins and portal veins are patent. Gallbladder: Unremarkable. Spleen: Mildly enlarged measuring 13.7 cm Pancreas: Unremarkable. Adrenal glands: Unremarkable. Kidneys: There is symmetric renal cortical enhancement. The kidneys are normal in size without hydron ephrosis. Bowel: There is sigmoid wall thickening, and infiltration of the perisigmoid fat. The findings are in dicative of acute diverticulitis. There is a 7 cm central pelvic fluid collection containing air bubb les. The findings are indicative of a pelvic abscess. There is a second 32 mm fluid collection anteri or to the rectum consistent with a second abscess. 2. Additional small pelvic abscesses are suspected. Evaluation is made more difficult given the lack of orally administered contrast. There is diffuse infiltration of the pelvic fat suggesting peritonit is. There is pelvic small bowel wall thickening. There are dilated fluid-filled loops of small bowel with normal caliber terminal ileum. The findings are indicative of a partial small bowel obstruction. There is a drop of free intraperitoneal air beneath the right hemidiaphragm Peritoneum: There is a droplet of free intraperitoneal air. There is a pelvic abscess. There is no si gnificant ascites. Vasculature: The abdominal aorta is normal in course and caliber. Adenopathy: None. Pelvic viscera: The bladder, and pelvic viscera are unremarkable. Skeletal structures: No destructive osseous lesions are seen. IMPRESSION: 1. Sigmoid diverticulitis 2. Interval development of a partial small bowel obstruction 3. Evidence of peritonitis with pelvic small bowel wall thickening and infiltration of the peritoneal fat within the pelvis 4. Multiple noncommunicating pelvic abscesses, the largest of which measures 7 cm.. It should be note d that evaluation is somewhat difficult given the lack of orally administered contrast 5. Tiny droplet of free intraperitoneal air Electronically signed by: Donis Arreguin M.D. 02/05/2019 3:45 PM
--- NOTE | 2019-02-05 16:48 | Hospitalist Progress Note ---
Date of Service February 05, 2019 Assessment & Plan (1) Diverticulitis of sigmoid colon: Cont Zosyn and pain control as needed. MRCP negative. Elevated indirect bilirubin has resolved indicating likely [place] syndrome. Appreciate GI input and recommendation Appreciate surgery input and recommendation Planed for oral Augmentin for a total of 10 days on discharge Condition got worse overnight 02/04 Not being feel any better since this morning Has had nausea with vomiting early this morning Bowel movement twice a very small amount of stool Complains to abdominal distention and bloating with pain Repeat CT scan of the abdomen and pelvis with intravenous contrast showed multiple pelvic abscesses Surgery reconsulted for further evaluation Repeat CT of the Abdomen and Pelvis: IMPRESSION: 1. Sigmoid diverticulitis 2. Interval development of a partial small bowel obstruction 3. Evidence of peritonitis with pelvic small bowel wall thickening and infiltration of the peritoneal fat within the pelvis 4. Multiple noncommunicating pelvic abscesses, the largest of which measures 7 cm.. It should be noted that evaluation is somewhat difficult given the lack of orally administered contrast 5. Tiny droplet of free intraperitoneal air (2) Polyp of gallbladder: Per Surgery recommendations. (3) Serum total bilirubin elevated: Likely secondary to [place] syndrome. MRCP negative. (4) DVT prophylaxis: SCDs/ambulation Full code Dispo-expect to home when medically stable. Subjective 02/03 The patient was seen and examined in medical floor Admitted with abdominal pain that came out to be secondary to sigmoid diverticulitis Still has some pain and distention He moved his bowels this morning Nauseous but no vomiting Advised to more ambulation 02/04 The patient was seen and examined in the medical unit He has been complaining of abdominal distention with nausea and vomiting Bowel has not moved Denies any fever and/or chills 02/05 The patient was seen and examined in the medical floor He has been feeling well and complains to have some abdominal distention and pain His bowel is moved this morning very small amount Has had nausea with vomiting early this morning Denies any fever and/or chills Review of Systems Review of Systems: All systems reviewed and are unremarkable except as noted below Gastrointestinal: + abdominal pain (Much improved), + bloating, + nausea and + vomiting Physical Exam Physical Exam: Lying in bed with some discomfort and anxiety Constitutional: well developed and well nourished; no acute distress and not ill appearing Eyes: PERRL, conjunctivae normal, anicteric sclerae ENMT: external ear and nose normal, oropharynx normal Neck: trachea midline, no thyromegaly Respiratory: normal respiratory effort; no respiratory distress Auscultation: lungs clear to auscultation bilaterally Cardiovascular: Rate/Rhythm: regular rate and regular rhythm Heart Sounds: no murmur Gastrointestinal (Abdomen): Inspection/Auscultation: + abdomen distended (Soft and mildly tender) and normal bowel sounds (Sluggish) Percussion/Palpation: + abdomen tender; no guarding and abdomen not rigid Lymphatic: no cervical or axillary lymphadenopathy Results & Data Vital Signs (Past 12 Hours) Vital Signs Temp Pulse Resp BP Pulse Ox 02/05/19 15:44 36.9 C 89 17 143/92 H 98 02/05/19 08:04 37.0 C 92 H 18 144/93 H 96 Laboratory Results Short CBC 02/05/19 Range/Units 09:01 WBC 16.86 H (4.8-10.8) K/uL Hgb 13.0 L (14.0-18.0) g/dL Hct 37.7 L (42-52) % Plt Count 258 (130-400) K/uL BMP 02/05/19 09:01 Sodium 139 Potassium 3.4 L D Chloride 106 Carbon Dioxide 24 BUN 5 L Creatinine 0.69 Glucose [address] of the Abdomen and Pelvis:IMPRESSION: 1. Sigmoid diverticulitis 2. Interval development of a partial small bowel obstruction 3. Evidence of peritonitis with pelvic small bowel wall thickening and infiltration of the peritoneal fat within the pelvis 4. Multiple noncommunicating pelvic abscesses, the largest of which measures 7 cm.. It should be noted that evaluation is somewhat difficult given the lack of orally administered contrast 5. Tiny droplet of free intraperitoneal air Medications Administered Current Inpatient Medications Amoxicillin/Clavulanate Potassium (Augmentin 875mg) 1 tab PO BIDM REPLACED BY [facility] Stop: 02/13/19 12:59 Last Admin: 02/05/19 07:25 Dose: 1 tab Documented by: Enoxaparin Sodium (Lovenox) 40 mg SQ Q24H REPLACED BY [facility] Stop: 03/04/19 11:59 Last Admin: 02/05/19 11:42 Dose: 40 mg Documented by: Hydromorphone HCl (Dilaudid) 0.5 mg IV Q1H PRN PRN Reason: Severe Pain Stop: 02/15/19 10:36 Last Admin: 02/05/19 01:50 Dose: 0.5 mg Documented by: Potassium Chloride/Sodium Chloride (Normal Saline W/20 Meq Kcl) 20 meq in 1,000 mls @ 100 mls/hr IV .Q10H [facility] Stop: 02/05/19 22:44 Last Admin: 02/05/19 11:40 Dose: 100 mls/hr Documented by: Ioversol (Optiray 320 100ml) 94 ml IV ONCE PRN PRN Reason: Interaction Checking Stop: 02/09/19 15:25 Last Admin: 02/05/19 15:26 Dose: 94 ml Documented by: Lactobacillus Acidophilus (Floranex) 4 tab PO TIDM [facility] Stop: 03/05/19 16:59 Last Admin: 02/05/19 11:41 Dose: 4 tab Documented by: Ondansetron HCl (Zofran) 4 mg IV Q6H PRN PRN Reason: Nausea Stop: 03/03/19 01:40 Last Admin: 02/04/19 14:34 Dose: 4 mg Documented by: Oxycodone HCl (Roxicodone Immediate Rel) 5 mg PO Q6H PRN PRN Reason: Pain Stop: 02/15/19 10:37 Last Admin: 02/05/19 16:10 Dose: 5 mg Documented by: Polyethylene Glycol (Miralax Powder Packet) 17 gm PO DAILY PRN PRN Reason: Constipation Stop: 03/05/19 07:09
--- NOTE | 2019-02-05 17:08 | Surgery Progress Note ---
Date of Service February 05, 2019 Assessment & Plan (1) Diverticulitis of sigmoid colon: Long discussion with the patient and significant other at the present time we will continue with antibiotic there is no need for surgery urgently depending on his clinical picture he may need these abscesses drained by radiology He had been transitioned to oral antibiotic we will restart him back on IV Cipro and Flagyl I would consider infectious disease consult for their input on antibiotic coverage He can may be maintained on a full liquid diet I would avoid any fiber at this time Present on Admission?: Yes Subjective Persistent RLQ, RUQ and LLQ pain that just restarted in late morning. Earlier this morning he was feeling better and up walking around the room and getting washed up in the bathroom. Surgery agreed to clears and he feels fine to start this. Afebrile. No nausea. Asked to see patient by Dr. Gardiner after having undergone a CT scan without contrast of the abdomen and pelvis today as a follow-up on an acute diverticulitis of 5 days ago when the patient was admitted Yesterday the patient experienced some more abdominal pain with an elevated white count and a CT scan today show what appears to be multiple abscesses with some pneumoperitoneum in the subdiaphragmatic area The patient is resting comfortably now not nauseated most of his discomfort is a suprapubic area and may be slightly to the left flank he is moving his bowels but states has not had any flatus Physical Exam Physical Exam: He is alert coherent sclerae nonicteric Well-hydrated The abdomen soft generally with suprapubic guarding but no masses appreciated and no real tenderness Results & Data Vital Signs (Past 12 Hours) Vital Signs Temp Pulse Resp BP Pulse Ox 02/05/19 15:44 36.9 C 89 17 143/92 H 98 02/05/19 08:04 37.0 C 92 H 18 144/93 H 96 PG Care Time/CCT Total # of Minutes Spent Total Time Spent with Patient: Total time spent is greater than 50% in coordination of care (as documented) at patient's floor/unit and/or counseling patient: CT scan findings were reviewed
[2019-02-05] MEDS: metroNIDAZOLE 500 MG/100 ML BAG IV SCH (18:14)
[2019-02-05] MEDS: CIPROFLOXACIN 400 MG/200 ML BAG IV SCH (20:22)
[2019-02-06] MEDS: metroNIDAZOLE 500 MG/100 ML BAG IV SCH ×3 (01:02→19:15)
[2019-02-06] MEDS: HYDROmorphone INJ 0.5 MG/0.5 ML SYR IV PRN ×6 (01:03→22:59)
[2019-02-06] MEDS: CIPROFLOXACIN 400 MG/200 ML BAG IV SCH ×2 (05:56→19:15)
[2019-02-06 08:07] LABS: Basophils # (auto) 0.03 K/uL (0-0.2); Basophils % (auto) 0.2 %; Eosinophils # (auto) 0.17 K/uL (0-0.5); Eosinophils % (auto) 1.1 %; Hematocrit (blood only) 38.2 % (42-52); Hemoglobin 12.9 g/dL (14.0-18.0); Immature Granulocytes % (auto) 0.6 %; Lymphocytes # (auto) 1.44 K/uL (1.2-3.4); Lymphocytes % (auto) 9.2 %; Mean Corpuscular Hemoglobin 28.8 pg (25-34); Mean Corpuscular Hgb Conc 33.8 g/dL (32-36); Mean Corpuscular Volume 85.3 fL (80-100); Mean Platelet Volume 9.8 fL (7.4-10.4); Monocytes % (auto) 10.3 %; Neutrophils # (auto) 12.24 K/uL (1.4-6.5); Neutrophils % (auto) 78.6 %; Platelet Count 252 K/uL (130-400); RDW Coefficient of Variation 13.8 % (11.5-14.5); RDW Standard Deviation 42.8 fL (36.4-46.3); Red Blood Count 4.48 M/uL (4.7-6.1); White Blood Count 15.58 K/uL (4.8-10.8)
[2019-02-06 08:35] LABS: BUN Creatinine Ratio 6.9 (10-20); Calcium 8.8 mg/dl (8.5-10.1); Creatinine Clr Calc Pharmacy 183.4 ml/min; Est GFR (African American) 146.2; Est GFR (Non-African American) 126.1; Potassium 3.4 mmol/L (3.5-5.1)
[2019-02-06] MEDS: LACTOBACILLUS ACIDOPHILUS (FLORANEX) TAB PO SCH ×3 (08:36→17:13)
--- NOTE | 2019-02-06 09:05 | Surgery Progress Note ---
Date of Service February 06, 2019 Assessment & Plan (1) Diverticulitis of sigmoid colon: pelvic abscess on repeat CT restarted on IV abx, WBC 15,[address] Carroll keep on liquids, can try full liquids Subjective feeling better, tolerating liquids, bowels moving Physical Exam Gastrointestinal (Abdomen): Inspection/Auscultation: abdomen not distended Percussion/Palpation: + abdomen tender (minimal) and abdomen soft Results & Data Vital Signs (Past 12 Hours) Vital Signs Temp Pulse Resp BP Pulse Ox 02/06/19 07:27 37.0 C 92 H 18 141/88 H 97 02/05/19 23:15 37.1 C 90 16 130/80 96 PG Care Time/CCT Total # of Minutes Spent Total Time Spent with Patient: Total time spent is greater than 50% in sales and marketing coordinator rdination of care (as documented) at patient's floor/unit and/or counseling patient:
[2019-02-06] MEDS: OXYCODONE HCL IR 5 MG TAB (IMMEDIATE RELEASE) PO PRN (10:11)
--- NOTE | 2019-02-06 11:01 | Hospitalist Progress Note ---
Date of Service February 06, 2019 Assessment & Plan (1) Diverticulitis of sigmoid colon: Zosyn started empirically on admission with transition to oral Augmentin as he began to improve clinically. He worsened shortly afterwards with vomiting and repeat CT scan of abdomen and pelvic revealed multiple pelvic abscesses and a partial small bowel obstruction. General Surgery re-evaluated him and transitioned him to Cipro/Flagyl IV with ?some clinical improvement. ID consulted for further recommendations from an infection standpoint. (2) Polyp of gallbladder: Per Surgery recommendations. (3) Partial small bowel obstruction: resolved and tolerating clears. Although surgery cleared him for full liquids, he is not tolerating much at this point. Also he reported 5 episodes of loose stool yesterday so do not want him on a is[place]-rich diet right away. Nurses were notified to screen for c-diff if 3 loos stools present. (4) Pelvic abscess in male: cont IV antibiotics as above. (5) Serum total bilirubin elevated: Likely secondary to [place] syndrome. MRCP negative. (6) DVT prophylaxis: Lovenox Full code Dispo-expect to home when medically stable. Ana Tubbs DO [facility] Hospitalist Subjective multiple liquid stools reported. still having chills and sweats but no fevers tolerating clears BMs cause pain asking to shower no real improvement on current abx but says they feel like they are holding the infection at bay. Review of Systems Review of Systems: All systems reviewed & are unremarkable except as noted in HPI & below Physical Exam Physical Exam: CONSTITUTIONAL: WNWD, vitals as above, generally mild distress because cannot sit up easily in bed. EYES: normal conjunctivae, no scleral icterus ENT: MMM RESPIRATORY: clear to auscultation bilaterally, no crackles, rales or wheezes, normal respiratory effort CARDIOVASCULAR: regular rate and rhythm, S1 and 2 heard without murmurs, gallops or rubs, no JVD, no peripheral edema GASTROINTESTINAL: soft, TTP in suprapubic and RLQ areas, nondistended MUSCULOSKELETAL: strength 5/5 throughout, head is normocephalic and atraumatic SKIN: warm and dry NEUROLOGIC: CN 2-12 grossly intact, no gross neurologic deficit PSYCHIATRIC: alert cooperative and oriented to person, place and time. Sad affect when speaking about his prolonged hospitalization. Results & Data Vital Signs (Past 12 Hours) Vital Signs Temp Pulse Resp BP Pulse Ox 02/06/19 07:27 37.0 C 92 H 18 141/88 H 97 02/05/19 23:15 37.1 C 90 16 130/80 96 Laboratory Results Short CBC 02/06/19 Range/Units 07:48 WBC 15.58 H (4.8-10.8) K/uL Hgb 12.9 L (14.0-18.0) g/dL Hct 38.2 L (42-52) % Plt Count 252 (130-400) K/uL BMP 02/06/19 07:48 Sodium 138 Potassium 3.4 L Chloride 103 Carbon Dioxide 25 BUN 5 L Creatinine 0.66 Glucose 108 H Calcium 8.8 Medications Administered Current Inpatient Medications Enoxaparin Sodium (Lovenox) 40 mg SQ Q24H SALINA Stop: 03/04/19 11:59 Last Admin: 02/05/19 11:42 Dose: 40 mg Documented by: Hydromorphone HCl (Dilaudid) 0.5 mg IV Q1H PRN PRN Reason: Severe Pain Stop: 02/15/19 10:36 Last Admin: 02/06/19 05:55 Dose: 0.5 mg Documented by: Ciprofloxacin (Cipro) 400 mg in 200 mls @ 100 mls/hr IV Q12H SALINA; Protocol Stop: 02/15/19 17:29 Last Infusion: 02/06/19 07:56 Dose: Infused Documented by: Metronidazole (Flagyl) 500 mg in 100 mls @ 100 mls/hr IV Q8H SALINA Stop: 02/15/19 17:59 Last Admin: 02/06/19 10:09 Dose: 100 mls/hr Documented by: Ioversol (Optiray 320 100ml) 94 ml IV ONCE PRN PRN Reason: Interaction Checking Stop: 02/09/19 15:25 Last Admin: 02/05/19 15:26 Dose: 94 ml Documented by: Lactobacillus Acidophilus (Floranex) 4 tab PO TIDM SALINA Stop: 03/05/19 16:59 Last Admin: 02/06/19 08:36 Dose: 4 tab Documented by: Ondansetron HCl (Zofran) 4 mg IV Q6H PRN PRN Reason: Nausea Stop: 03/03/19 01:40 Last Admin: 02/04/19 14:34 Dose: 4 mg Documented by: Oxycodone HCl (Roxicodone Immediate Rel) 5 mg PO Q6H PRN PRN Reason: Pain Stop: 02/15/19 10:37 Last Admin: 02/06/19 10:11 Dose: 5 mg Documented by: Polyethylene Glycol (Miralax Powder Packet) 17 gm PO DAILY PRN PRN Reason: Constipation Stop: 03/05/19 07:09
[2019-02-06] MEDS: ENOXAPARIN INJ 40 MG/0.4 ML SYR SQ SCH (11:16)
[2019-02-06] MEDS ORDERED: POTASSIUM CHLORIDE 20 MEQ TABCR PO ONE (17:30)
[2019-02-07] MEDS: metroNIDAZOLE 500 MG/100 ML BAG IV SCH ×2 (01:21→09:45)
[2019-02-07] MEDS: OXYCODONE HCL IR 5 MG TAB (IMMEDIATE RELEASE) PO PRN ×2 (01:25→09:44)
[2019-02-07] MEDS: CIPROFLOXACIN 400 MG/200 ML BAG IV SCH (05:47)
[2019-02-07 06:49] LABS: Basophils # (auto) 0.05 K/uL (0-0.2); Basophils % (auto) 0.3 %; Eosinophils # (auto) 0.12 K/uL (0-0.5); Eosinophils % (auto) 0.8 %; Hematocrit (blood only) 39.4 % (42-52); Hemoglobin 13.4 g/dL (14.0-18.0); Immature Granulocytes # (auto) 0.13 K/uL (0.00-0.02); Immature Granulocytes % (auto) 0.9 %; Lymphocytes # (auto) 2.01 K/uL (1.2-3.4); Lymphocytes % (auto) 13.8 %; Mean Corpuscular Hemoglobin 28.9 pg (25-34); Mean Corpuscular Volume 85.1 fL (80-100); Mean Platelet Volume 9.7 fL (7.4-10.4); Monocytes # (auto) 1.51 K/uL (0.11-0.59); Monocytes % (auto) 10.3 %; Neutrophils # (auto) 10.78 K/uL (1.4-6.5); Neutrophils % (auto) 73.9 %; Platelet Count 291 K/uL (130-400); RDW Coefficient of Variation 13.8 % (11.5-14.5); RDW Standard Deviation 42.5 fL (36.4-46.3); Red Blood Count 4.63 M/uL (4.7-6.1)
[2019-02-07 07:26] LABS: BUN Creatinine Ratio 8.8 (10-20); Calcium 9.4 mg/dl (8.5-10.1); Creatinine Clr Calc Pharmacy 175.4 ml/min; Est GFR (African American) 143.6; Est GFR (Non-African American) 123.9; Magnesium 2.2 mg/dl (1.8-2.4); Potassium 3.3 mmol/L (3.5-5.1)
[2019-02-07] MEDS: HYDROmorphone INJ 0.5 MG/0.5 ML SYR IV PRN (07:32)
[2019-02-07] MEDS: LACTOBACILLUS ACIDOPHILUS (FLORANEX) TAB PO SCH ×2 (08:57→12:43)
--- NOTE | 2019-02-07 09:46 | Surgery Progress Note ---
Date of Service pt is stable, passed BM this morning, still have mild lower abdominal pain, pt had CT scan dx 7cm abscess at pelvic area, February 07, 2019 Assessment & Plan (1) Diverticulitis of sigmoid colon: pt is a 33 year-old male who was admitted to Hospital for acute diverticulitis, IMP: acute RUQ pain, acute diverticulitis, base on pt had RUQ pain with (T) bili 2.1 I recommend to do MRCP to R/O gallbladder disease, pt agrees with plan, I agree with conservative treatment acute diverticulitis plan, repeat labs in am, will F/U 02/02/2019 11:43am clear diet, continue treatment, will F/U 02/03/2019 8:43am doing fine, possible pt can be discharged home today or tomorrow, sign off today, please call with questions, Thanks, 02/07/2019 9:43AM diverticulitis with 7 cm abscess, recommend to transfer higher level care for CT guarding drainage abscess by intervention radiologist, Thanks, D/W pt's attending. (2) RUQ abdominal pain: Subjective multiple liquid stools reported. still having chills and sweats but no fevers tolerating clears BMs cause pain asking to shower no real improvement on current abx but says they feel like they are holding the infection at bay. Physical Exam Constitutional: WD/WN, vitals as above well developed and well nourished ENMT: external ear and nose normal, oropharynx normal Neck: trachea midline, no thyromegaly Respiratory: normal respiratory effort, lungs clear to auscultation Cardiovascular: RRR, no murmur, no edema Rate/Rhythm: regular rate and regular rhythm Heart Sounds: normal S1 and normal S2 Gastrointestinal (Abdomen): Percussion/Palpation: abdomen soft mild tenderness at lower abdomen, no rebound pain, , no distend Musculoskeletal: no cyanosis or clubbing, extremities motor strength 5/5 Skin: no rashes, warm and dry Neurologic: patellar DTR's 2+ bilat, sensation intact Psychiatric: A+Ox3, euthymic affect Orientation: alert and oriented x 3 Results & Data Vital Signs (Past 12 Hours) Vital Signs Temp Pulse Pulse Resp BP Pulse Ox 02/07/19 08:08 37.3 C 70 18 122/82 95 02/06/19 23:23 37.0 C 88 16 134/84 95 Laboratory Results Abnormal lab results 02/07/19 02/07/19 Range/Units 06:09 06:09 WBC 14.60 H (4.8-10.8) K/uL RBC 4.63 L (4.7-6.1) M/uL Hgb 13.4 L (14.0-18.0) g/dL Hct 39.4 L (42-52) % Immature Gran # (Auto) 0.13 H (0.00-0.02) K/uL Neut # (Auto) 10.78 H (1.4-6.5) K/uL Walsh # (Auto) 1.51 H (0.11-0.59) K/uL Potassium 3.3 L (3.5-5.1) mmol/L BUN 6 L (7-18) mg/dl BUN/Creatinine Ratio 8.8 L (10-20) Diagnostic Findings CT abd pelvis IV con only CLINICAL HISTORY: Diverticular Abscess COMPARISON STUDY: CT scan dated 01/31/2019 TECHNIQUE: The patient was scanned in a dynamic helical fashion during the intravenous administration of 94 cc of Optiray 320. A dose lowering technique was utilized adhering to the principles of ALARA. CT DOSE: 652.55 mGy.cm FINDINGS: Lower chest: There are mild basilar atelectatic changes. There is a trace right pleural effusion Liver: The contrast-enhanced liver is normal in size, contour, and attenuation. There is no intrahepatic biliary ductal dilatation. The hepatic veins and portal veins are patent. Gallbladder: Unremarkable. Spleen: Mildly enlarged measuring 13.7 cm Pancreas: Unremarkable. Adrenal glands: Unremarkable. Kidneys: There is symmetric renal cortical enhancement. The kidneys are normal in size without hydronephrosis. Bowel: There is sigmoid wall thickening, and infiltration of the perisigmoid fat. The findings are indicative of acute diverticulitis. There is a 7 cm central pelvic fluid collection containing air bubbles. The findings are indicative of a pelvic abscess. There is a second 32 mm fluid collection anterior to the rectum consistent with a second abscess. 2. Additional small pelvic abscesses are suspected. Evaluation is made more difficult given the lack of orally administered contrast. There is diffuse infiltration of the pelvic fat suggesting peritonitis. There is pelvic small bowel wall thickening. There are dilated fluid-filled loops of small bowel with normal caliber terminal ileum. The findings are indicative of a partial small bowel obstruction. There is a drop of free intraperitoneal air beneath the right hemidiaphragm Peritoneum: There is a droplet of free intraperitoneal air. There is a pelvic abscess. There is no significant ascites. Vasculature: The abdominal aorta is normal in course and caliber. Adenopathy: None. Pelvic viscera: The bladder, and pelvic viscera are unremarkable. Skeletal structures: No destructive osseous lesions are seen. IMPRESSION: 1. Sigmoid diverticulitis 2. Interval development of a partial small bowel obstruction 3. Evidence of peritonitis with pelvic small bowel wall thickening and infiltration of the peritoneal fat within the pelvis 4. Multiple noncommunicating pelvic abscesses, the largest of which measures 7 cm.. It should be noted that evaluation is somewhat difficult given the lack of orally administered contrast 5. Tiny droplet of free intraperitoneal air
--- NOTE | 2019-02-07 11:00 | Infectious Disease Consult ---
Date of Consultation February 07, 2019 Assessment & Plan (1) Pelvic abscess in male: can continue with current IV abx, would maintain IV for now due to poor po intake. Suspect 7cm abscess with require drainage procedure, abx will not be effective alone with abscess that size. will likely require several weeks of abx. would send fluid for culture. Agree with transfer for IR drainage. History of Present Illness Attending Physician: Ana Tubbs DO pt admitted with sudden onset abd pain, he was seen in ER on 01/31 - acute sigmoid diverticulitis, wbc 18, fever 38.1. initially given cipro and jennings and d/c home, returned with ongoing pain, admitted and placed on zosyn, then was change to augmentin on 02/03. states he had significant nausea and BRIGHT on augmentin and continued with worsening abd pain. surgery and GI following, MRCP done and negative. blood cultures from admission negative. due to ongoing pain, ct was repeated on 02/05 - now with multiple abscesses, largest 7 cm. He was transitioned to IV cipro and jennings yesterday, tolerating well. States he feels slightly better today but has ongoing abd pain and pressure, states BM is paniful, also noted to have obstruction on repeat ct. no bleeding, no n/v. tolerating clears but states he has pain with eating/drinking. Afebrile. wbc slightly better. States he is awaiting transfer to have IR drainage of abscess. no cp, cough, sob, no gu symptoms. Allergies Allergy/AdvReac Type Severity Reaction Status Date / Time No Known Allergies Allergy Unverified 01/31/19 06:12 Home Medications Home Medications Medication Instructions Recorded Confirmed Type ciprofloxacin HCl [Cipro] 500 mg PO BID #20 tab 01/31/19 01/31/19 Rx metronidazole [Flagyl] 500 mg PO TID #30 tab 01/31/19 01/31/19 Rx Patient History Medical History Diverticulitis of sigmoid colon (Acute) Epilepsy Surgical History No pertinent past surgical history Family History Other Diverticulitis of sigmoid colon Social History Preferred Language: Greek Communication Ability: Effective [facility] Specialist Required: No Beliefs That Will Affect Care: None marital status: Current Living Situation: Spouse current occupational status: employed Feels Safe at Home: Yes Safety Concerns: Feels Safe At This Time Smoking Status: Never smoker Hx Alcohol Use: Yes Alcohol type: beer, wine and hard liquor Hx Substance Use: No Review of Systems Review of Systems: All systems reviewed & are unremarkable except as noted in HPI & below Physical Exam Constitutional: WD/WN, vitals as above Eyes: PERRL, conjunctivae normal, anicteric sclerae ENMT: external ear and nose normal, oropharynx normal Neck: normal visual inspection Respiratory: normal respiratory effort, lungs clear to auscultation Cardiovascular: RRR, no murmur, no edema Gastrointestinal (Abdomen): Inspection/Auscultation: + abdomen distended and normal bowel sounds Percussion/Palpation: + abdomen tender and abdomen soft; no guarding and abdomen not rigid Musculoskeletal: no cyanosis or clubbing, extremities motor strength 5/5 Skin: no rashes, warm and dry Psychiatric: A+Ox3, euthymic affect Results & Data Vital Signs (Past 12 Hours) Vital Signs Temp Pulse Pulse Resp BP Pulse Ox 02/07/19 08:08 37.3 C 70 18 122/82 95 02/06/19 23:23 37.0 C 88 16 134/84 95 Laboratory Results Microbiology 02/03/19 07:33 Stool WBC Smear - Final 02/03/19 07:33 Stool Escherichia coli Shiga Toxins Test - Final 02/03/19 07:33 Stool Stool Culture - Final No Salmonella isolated, No Shigella isolated, No Campylobacter jejuni isolated. 01/31/19 23:30 Blood Aerobic Blood Culture - Final No growth in Aerobic bottle after 5 days. 01/31/19 23:30 Blood Anaerobic Blood Culture - Final No growth in Anaerobic bottle after 5 days. 01/31/19 23:40 Blood Aerobic Blood Culture - Final No growth in Aerobic bottle after 5 days. 01/31/19 23:40 Blood Anaerobic Blood Culture - Final No growth in Anaerobic bottle after 5 days. 02/01/19 03:00 Urine,Clean Catch Urine Culture - Final No growth - less than 1,000 colonies/mL. PG Care Time/CCT Total # of Minutes Spent Total Time Spent with Patient: Total time spent is greater than 50% in coordination of care (as documented) at patient's floor/unit and/or counseling patient:
--- NOTE | 2019-02-07 12:18 | Discharge Summary ---
Date of Service February 07, 2019 Admission HPI Per Admitting Provider HISTORY OF PRESENT ILLNESS: A 33-year-old male with past medical history significant for constipation, history of epilepsy, no longer on medications, the last time he had a seizure was about more than 10 years ago. Since his PCP retired, he is not following with any doctors. He presents with lower abdominal pain. The patient developed lower abdominal pain yesterday morning around 4:00, came to the ER around 5:00 a.m. and was diagnosed with acute sigmoid diverticulitis and his pain improved and he did fine and he was discharged home on Cipro and Flagyl around 11:00 a.m. The patient says after going home, he did okay, but later in the evening in the dinnertime when he ate plain rice and broth, the abdominal pain came back and it was severe than in the morning associated with some nausea, feeling sweaty and cold, but denies any fever or chills. The last bowel movement was yesterday morning, it was diarrhea, no blood in the stools or black stools. Says the pain was severe, so he came back here and his white count went up from 15,000 to 18,000. Otherwise hemodynamics are stable, so we are called for admission for IV antibiotics. Currently, the patient's pain is under control. Resting comfortably. Denies any other complaints. Denies any headache, no blurred vision, no dizziness, no runny nose, no sore throat. Appetite is otherwise okay. No chest pain,. Getting short of breath because of pain and when he coughs, has severe pain in the lower abdomen. Normal bladder movements. No hematuria. He says he has some burning micturition. No swelling in the legs, no rash. Otherwise, he is active. Lives with his Admission Exam Per Admitting Provider PHYSICAL EXAMINATION: GENERAL: The patient is of moderate build, not in acute distress. VITAL SIGNS: Temperature 37.2, pulse 76, respiratory rate 16, blood pressure 132/89, oxygen 97% on room air. HEENT: No pallor, no icterus. Pupils equal, round, and reactive to light. NECK: No JVD, no neck masses, no carotid bruits. CARDIOVASCULAR: S1, S2 heard, regular rate and rhythm, no murmur, no gallop. RESPIRATORY SYSTEM: Normal AP diameter. No accessory muscle use. No wheezing, no crackles. ABDOMEN: Soft, bowel sounds present. Diffuse tenderness, more in the lower abdomen. Mild guarding. No rigidity, no rebound tenderness, no distention. CENTRAL NERVOUS SYSTEM: Cranial nerves II-XII grossly intact. Nonfocal. EXTREMITIES: No edema, no erythema. Principal Diagnosis acute diverticulitis complicated with multiple pelvic abscesses partial SBO Discharge Exam CONSTITUTIONAL: WNWD, vitals as above, generally well-appearing EYES: normal conjunctivae, no scleral icterus ENT: MMM RESPIRATORY: clear to auscultation bilaterally, no crackles, rales or wheezes, normal respiratory effort CARDIOVASCULAR: regular rate and rhythm, S1 and 2 heard without murmurs, gallops or rubs, no JVD, no peripheral edema GASTROINTESTINAL: normal bowel sounds, soft, nontender, nondistended MUSCULOSKELETAL: strength 5/5 throughout, head is normocephalic and atraumatic SKIN: warm and dry NEUROLOGIC: CN 2-12 grossly intact, no sensory deficit, normal cognition, normal speech, no gross focal deficits. PSYCHIATRIC: alert cooperative and oriented to person, place and time. Discharge Data Allergies Allergy/AdvReac Type Severity Reaction Status Date / Time No Known Allergies Allergy Unverified 01/31/19 06:12 Consultations 02/01/19 00:19 ED Decision to Admit Stat 02/01/19 08:00 Consult General Surgery Routine 02/01/19 12:07 Consult Gastroenterology Routine 02/06/19 10:57 Consult Infectious Diseases Routine 02/07/19 11:15 Burn CD for patient Routine Ordered Studies 02/01/19 01:41 US gallbladder Routine 02/01/19 12:06 MR MRCP Urgent 02/05/19 14:56 CT abd pelvis IV con only Routine Hospital Course (1) Diverticulitis of sigmoid colon: (2) Partial small bowel obstruction: (3) Pelvic abscess in male: (4) Polyp of gallbladder: (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 After going home from the ER he ate some rice and broth it makes pain worse. When he returned he was admitted to the medicine service and placed on Zosyn. General surgery was consulted and in the setting of a gallbladder polyp and mildly elevated indirect bilirubin a HIDA scan was recommended. This was unable to be performed in the setting of morphine usage for pain control therefore an MRCP was performed which was normal. The general surgeon did not feel there was surgical indication at this point or a concern for acute cholecystitis. Antibiotics were continued and GI was consulted. They recommend outpatient colonoscopy in 6 to 8 weeks to verify presence of diverticulosis and to rule out colon cancer or IBD. He continued to do well and was transitioned to oral Augmentin around 02/03, however he clinically worsened. Repeat abdomen and pelvis CT with IV contrast was performed on 02/05 revealing interval development of a partial small bowel obstruction, evidence of peritonitis with pelvic small bowel wall thickening and infiltration of the peritoneal fat within the pelvis and multiple noncommunicating pelvic abscesses, the largest of which was 7 cm. Initially surgery recommended continuing conservative care on now IV Cipro and IV Flagyl. However, following the weekend a new surgeon recommended transfer for IR drainage of the abscesses. At this point the patient had not improved much over the weekend and was not tolerating much in the way of clear liquids. Infectious Disease was consulted and agreed with this plan and continuation of intravenous antibiotics. At time of discharge he was hemodynamically stable and afebrile and tolerating minimal p.o. He was mentating at baseline and oxygenating well on room air. He was transferred in stable condition via ambulance to [facility] in [place] for consideration of interventional radiology guided drainage of these abscesses and further care of his condition. Recommend a 1 week follow-up post hospital discharge with primary care doctor. Of note, diarrhea was noted and checked for C. difficile which was negative. A stool culture was also checked and negative for acute infection. INPATIENT MEDICATIONS: Current Inpatient Medications Enoxaparin Sodium (Lovenox) 40 mg SQ Q24H SALINA Stop: 03/04/19 11:59 Last Admin: 02/06/19 11:16 Dose: 40 mg Documented by: Hydromorphone HCl (Dilaudid) 0.5 mg IV Q1H PRN PRN Reason: Severe Pain Stop: 02/15/19 10:36 Last Admin: 02/07/19 07:32 Dose: 0.5 mg Documented by: Ciprofloxacin (Cipro) 400 mg in 200 mls @ 100 mls/hr IV Q12H SALINA; Protocol Stop: 02/15/19 17:29 Last Infusion: 02/07/19 07:54 Dose: Infused Documented by: Metronidazole (Flagyl) 500 mg in 100 mls @ 100 mls/hr IV Q8H SALINA Stop: 02/15/19 17:59 Last Infusion: 02/07/19 10:50 Dose: Infused Documented by: Ioversol (Optiray 320 100ml) 94 ml IV ONCE PRN PRN Reason: Interaction Checking Stop: 02/09/19 15:25 Last Admin: 02/05/19 15:26 Dose: 94 ml Documented by: Lactobacillus Acidophilus (Floranex) 4 tab PO TIDM SALINA Stop: 03/05/19 16:59 Last Admin: 02/07/19 08:57 Dose: 4 tab Documented by: Ondansetron HCl (Zofran) 4 mg IV Q6H PRN PRN Reason: Nausea Stop: 03/03/19 01:40 Last Admin: 02/04/19 14:34 Dose: 4 mg Documented by: Oxycodone HCl (Roxicodone Immediate Rel) 5 mg PO Q6H PRN PRN Reason: Pain Stop: 02/15/19 10:37 Last Admin: 02/07/19 09:44 Dose: 5 mg Documented by: Polyethylene Glycol (Miralax Powder Packet) 17 gm PO DAILY PRN PRN Reason: Constipation Stop: 03/05/19 07:09 Potassium Chloride (Klor-Con M20) 40 meq PO ONE ONE Stop: 02/08/19 10:30 Total Time Total Time Spent Total Time Spent (In Minutes): 60 Total Time Includes: Examination of the Patient, Discharge Planning, Medication Reconciliation, Communication With Other Providers and Other (orchestrate transfer) Discharge Plan Discharge Items Patient Disposition: Transfer Acute Care Hospital Reason For Visit: ABDOMINAL PAIN Discharge Diagnosis: acute diverticulitis complicated with multiple pelvic abscesses partial SBO Condition on Discharge: Fair Activity: Resume your previous activity Non-emergency contact: Primary Care Provider Call non-emergency contact if: you have any medication questions, your symptoms worsen, your pain is not controlled, your pain is worsening, your pain is unusual for you, your pain is concerning for you and you have a fever Follow-up/Referrals: PCP,NO [Primary Care Provider] - Diet: Clear liquid Addtl Attending Provider Instructions: You are being transferred to [facility] for further treatment that is unavailable at [facility]. It is recommended that you follow-up with your primary care physician within one week of discharge from the hospital. It was a pleasure taking care of you! Please call if you have any questions or problems. You can reach a [facility] hospitalist on duty at [facility] 24 hours a day by calling [phone]. Take care of yourself. Ana Tubbs, DO [facility] Pending Studies at Discharge: No Stand-Alone Forms: Call Back Authorization, My [facility] Skilled Items Patient informed of condition?: Yes DNR: No Discharge Level of Care: Other Communicable Disease: No Discharge Prognosis: Stable Lines: Peripheral IV Urinary Catheter: No Medications and DC Order Prescriptions: Discontinued metronidazole [Flagyl] 500 mg tablet 500 mg PO TID Qty: 30 RF: 0 ciprofloxacin HCl [Cipro] 500 mg tablet 500 mg PO BID Qty: 20 RF: 0 Admission Data Admit Date/Time: 02/01/19 01:06 Attending Provider: Ana Tubbs Admit Provider: Nathaniel Mtz Primary Care Provider: PCP,NO Other Providers: Nathaniel Mtz ; Cristofer Quiles Molham ; Ana Tubbs ; Armando Moeller
[2019-02-07] MEDS: ENOXAPARIN INJ 40 MG/0.4 ML SYR SQ SCH (12:43)
[2019-02-08] MEDS ORDERED: POTASSIUM CHLORIDE 20 MEQ TABCR PO ONE (10:29)
== END 2019-02-07 15:03 | disposition short-term general hospital (02) | DRG 392 ==
LOC: ED 23:06 → 3W 02-01 01:06 → SUATTDRO 02-01 01:06 → 3W 02-01 01:26

== ENCOUNTER 2020-12-06 13:29 | Inpatient (IN) ==
[2020-12-06 14:34] LABS: Basophils # (auto) 0.06 K/uL (0-0.2); Basophils % (auto) 0.4 %; Eosinophils # (auto) 0.15 K/uL (0-0.5); Eosinophils % (auto) 1.1 %; Hematocrit (blood only) 47.1 % (42-52); Hemoglobin 16.5 g/dL (14.0-18.0); Immature Granulocytes # (auto) 0.03 K/uL (0.00-0.02); Immature Granulocytes % (auto) 0.2 %; Lymphocytes # (auto) 2.48 K/uL (1.2-3.4); Lymphocytes % (auto) 17.5 %; Mean Corpuscular Hemoglobin 29.3 pg (25-34); Mean Corpuscular Volume 83.7 fL (80-100); Mean Platelet Volume 10.6 fL (7.4-10.4); Monocytes # (auto) 1.73 K/uL (0.11-0.59); Monocytes % (auto) 12.2 %; Neutrophils # (auto) 9.74 K/uL (1.4-6.5); Neutrophils % (auto) 68.6 %; Platelet Count 248 K/uL (130-400); RDW Coefficient of Variation 13.4 % (11.5-14.5); RDW Standard Deviation 40.5 fL (36.4-46.3); Red Blood Count 5.63 M/uL (4.7-6.1); White Blood Count 14.19 K/uL (4.8-10.8)
[2020-12-06 14:37] LABS: Albumin Globulin Ratio 0.8 (0.9-2); BUN Creatinine Ratio 16.1 (10-20); Bilirubin,Total 2.3 mg/dl (0.2-1); Calcium 9.6 mg/dl (8.5-10.1); Creatinine Clr Calc Pharmacy 127.8 ml/min; Est GFR (African American) 105.3 ml/min; Est GFR (Non-African American) 90.9 ml/min; Globulin 4.9 gm/dl (2.5-4.0); Potassium 3.8 mmol/L (3.5-5.1); Total Protein 8.9 gm/dl (6.4-8.2)
[2020-12-06] MEDS ORDERED: SODIUM CHLORIDE 0.9% 1000ML 2,000 ML IV ONE (15:01)
[2020-12-06] MEDS ORDERED: PIPERACILLIN/TAZOBACTAM 4.5 GM/120 ML BAG IV ONE (15:01)
[2020-12-06] MEDS ORDERED: PIPERACILL/TAZOBAC CONSULT ACTIVE PRN (15:01)
[2020-12-06] MEDS ORDERED: CONSULT PHARMACY STA (16:25)
--- NOTE | 2020-12-06 16:28 | History & Physical Report ---
Date of Service December 06, 2020 Assessment & Plan (1) Diverticulitis of sigmoid colon: Plan: This is a 35yo M with PMH of diverticulitis, history of epilepsy, chronic idiopathic constipation and other medical problems with abdominal pain x 6 days that has slowly worsened and outpatient CT abd/pelvis showed sigmoid diverticulitis with possible microperforation. Worsening abdominal pain x 6 days, history of recurrent diverticulitis in the past Outpatient CT abd/pelvis with con showing sigmoid diverticulitis with surrounding fat stranding and free air, favored to represent perforated diverticulitis although residual from prior perforated abscess possible WBC 14.19, tbili 2.3, lactate pending Continue Zosyn, IV fluids, NPO, pain control Evaluated by Dr. Paulino in the ED - conservative treatment for now, repeat labs in AM, no emergent surgical indication now (2) Epilepsy: Plan: Remote history in his teens. Not on antiepileptic medication DVT Ppx: SCDs Code status: FULL PCP: Eyad Dispo: Admitted to [facility] tele Patient seen in collaboration with Dr. Allan. Please see addendum. History of Present Illness Chief Complaint: abdominal pain Primary Care Provider: Tai Castano MD This is a 35yo M with PMH of diverticulitis, history of epilepsy, chronic idiopathic constipation and other medical problems with abdominal pain x 6 days that has slowly worsened. Was painful enough that patient has been staying home from work to rest. Has improved while on liquid diet of water and broth. Was seen for this in [facility] yesterday and had CT abd/pelvis this morning. Was called with results and directed to ED for further treatment. Endorses chills, no fever. Minimal pain at rest. One episode of vomiting 2 days ago. Small bowel movements over past few days. CT abd/pelvis stat read from clinic showing sigmoid diverticulitis with surrounding fat stranding and free air, favored to represent perforated diverticulitis although residual from prior perforated abscess possible. No drainable fluid collection is seen. History of diverticulitis with abscess 2 years ago requiring IR abscess drainage and then a more mild occurrence last year resolved with PO meds. Denies lightheadedness, headache, CP, palpitations, shortness of breath, nausea, dysuria or diarrhea. 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 diverticulitis [place] teeth extracted Family History Other Diverticulitis of sigmoid colon Social History Smoking Status: Never smoker Hx Alcohol Use: Yes Alcohol type: beer, wine and hard liquor Alcohol Intake Frequency: 2-3 x/Week Hx Substance Use: No Preferred Language: German Communication Ability: Effective Life Skills Coach Required: No Beliefs That Will Affect Care: None marital status: Current Living Situation: Spouse and Family current occupational status: employed Other Information That Helps Us Care for You: No Feels Safe at Home: Yes Safety Concerns: Feels Safe At This Time Assistive Devices: None Assistive Devices Comment: retainer Review of Systems Review of Systems: At least ten systems reviewed and negative except as noted in the HPI. Physical Exam Physical Exam: Please see Dr. Allan's addendum for physical exam. Results & Data Results & Data ([facility]) Vital Signs (Past 12 Hours) Vital Signs Temp Pulse Resp BP Pulse Ox 12/06/20 13:34 36.6 C 96 H 16 141/89 H 99 Laboratory Results Short CBC 12/06/20 Range/Units 14:00 WBC 14.19 H (4.8-10.8) K/uL Hgb 16.5 (14.0-18.0) g/dL Hct 47.1 (42-52) % Plt Count 248 (130-400) K/uL BMP 12/06/20 14:00 Sodium 136 Potassium 3.8 Chloride 104 Carbon Dioxide 24 BUN 17 Creatinine 1.05 Glucose 83 Calcium 9.6 Liver Function 12/06/20 Range/Units 14:00 Total Bilirubin 2.3 H (0.2-1) mg/dl AST 20 (15-37) U/L ALT 32 (12-78) U/L Alkaline Phosphatase 68 (45-117) U/L Albumin 4.0 (3.4-5.0) gm/dl Code Status & VTE Plan VTE Prophylaxis Plan VTE Prophylaxis will be ordered: Yes Supervising Physician Co-Signing Physician Notes Patient is a 35-year-old male with history of diverticulitis, epilepsy medical problems presents with history of abdominal pain which has been intermittent since last 6 days. Patient started to take more liquid diet since the abdominal pain and it transiently helped. He also states having an episode of nausea with vomiting 2 days ago. He was evaluated by his PCP and had CT abdomen which is suggestive of sigmoid diverticulitis with perforation and so was sent to ED for further evaluation. Please review HPI for complete details of presentation. Blood work suggestive of white blood cell count 14 K. Blood pressure slightly elevated while in ED. Discussed with surgery while in ED, recommends conservative management. Physical Exam: Vitals signs as noted above General Appearance:Moderately built and nourished, no apparent distress Head: normocephalic, Atraumatic Eyes: normal inspection, EOMI Neck: supple, Trachea midline Respiratory/Chest: Normal breath sounds, CTA, No accessory muscle use Cardiovascular: S1, S2, No murmur Abdomen/GI:Soft, LLQ tender, no guarding, no rigidity, bowel sounds present Extremities/Musculoskeletal:normal inspection, no edema Neurologic/Psych:AAOX3, grossly no focal neurological deficits Skin: normal color, warm Acute diverticulitis with perforation No signs of sepsis CT abdomen reviewed Normal lactate levels Continue IV fluids, Zosyn, n.p.o. Appreciate surgery input I personally reviewed the record. Patient is interviewed and examined at bedside. Patient's care is coordinated with Bel Srinivasan PA-C. Please refer to the documentation above for details of patient's presentation and for discussion of other issues.
--- NOTE | 2020-12-06 16:59 | Surgery Consultation ---
Date of Consultation December 06, 2020 Assessment & Plan (1) Diverticulitis of sigmoid colon: pt is a 35 year-old male who presents to Er with 6 days history LLQ pain, IMP: diverticulitis possible with micro-perforation, Plan, medicine team admit pt to hospital , conservative treatment now, NPO, IV fluid, IV antibiotic, control pain, repeat labs in morning, no emergent surgery indication now, will F/U, Thanks medicine team admit pt, Present on Admission?: Yes History of Present Illness Reason for Consultation: diverticulitis Requesting Physician: Bel aLw History of Present Illness CC: abdominal pain, This is a 35yo M with PMH of diverticulitis, history of epilepsy, Gilbert's disease, chronic idiopathic constipation and other medical problems with abdominal pain x 6 days that has slowly worsened. Was painful enough that patient has been staying home from work to rest. Has improved while on liquid diet of water and broth. Was seen for this in [facility] yesterday and had CT abd/pelvis this morning. Was called with results and directed to ED for further treatment. Endorses chills, no fever. Minimal pain except with palpation. Feels like he cannot take a deep breath due to abdominal pain. No diarrhea or blood in stool. CT abd/pelvis stat read showing sigmoid diverticulitis with surrounding fat stranding and free air, favored to represent perforated diverticulitis although residual from prior perforated abscess possible. No drainable fluid collection is seen. History of diverticulitis with abscess 2 years ago and then a more mild occurrence last year resolved with PO meds. Denies lightheadedness, headache, CP, palpitations, shortness of breath, nausea, vomiting, dysuria, diarrhea or constipation. I got a call for consult diverticulitis, I reviewed pt's H/P, labs Ct scan with, pt said pt has less abdominal pain compare 2 years ago, pt had IR drainage abscess at sigmoid diverticulitis in 2019, the drainage was removed after one month, pt denies fever, no diarrhea , no bloody stool this time, Allergies Allergy/AdvReac Type Severity Reaction Status Date / Time No Known Allergies Allergy Unverified 12/06/20 14:19 Home Medications Medication Instructions Recorded Confirmed Type No Known Home Medications 12/06/20 12/06/20 History Past Med/Surg History Medical History (Updated 12/06/20 @ 16:41 by Bel Srinivasan PA-C) Diverticulitis of sigmoid colon Epilepsy Gilbert syndrome Migraine Surgical History No pertinent past surgical history Family History Other Diverticulitis of sigmoid colon Social History Smoking Status: Never smoker Hx Alcohol Use: Yes Alcohol type: beer, wine and hard liquor Alcohol Intake Frequency: 2-3 x/Week Hx Substance Use: No Preferred Language: Czech Communication Ability: Effective Wet Pan Mixer Required: No Beliefs That Will Affect Care: None marital status: Current Living Situation: Spouse current occupational status: employed Feels Safe at Home: Yes Assistive Devices: None Review of Systems Review of Systems: At least ten systems reviewed and negative except as noted in the HPI. Allergies Allergy/AdvReac Type Severity Reaction Status Date / Time No Known Allergies Allergy Unverified 12/06/20 14:19 Home Medications Medication Instructions Recorded Confirmed Type No Known Home Medications 12/06/20 12/06/20 History Patient History Medical History (Updated 12/06/20 @ 16:41 by Bel Srinivasan PA-C) Diverticulitis of sigmoid colon Epilepsy Gilbert syndrome Migraine Surgical History No pertinent past surgical history Family History Other Diverticulitis of sigmoid colon Social History Smoking Status: Never smoker Hx Alcohol Use: Yes Alcohol type: beer, wine and hard liquor Alcohol Intake Frequency: 2-3 x/Week Hx Substance Use: No Preferred Language: Czech Communication Ability: Effective Wet Pan Mixer Required: No Beliefs That Will Affect Care: None marital status: Current Living Situation: Spouse current occupational status: employed Feels Safe at Home: Yes Assistive Devices: None Review of Systems Constitutional: as per Subjective / HPI Eyes: as per Subjective / HPI Respiratory: as per Subjective / HPI Cardiovascular: as per Subjective / HPI Gastrointestinal: as per Subjective / HPI sigmoid diverticulitis with abscess in 2019, IR drainage the abscess Musculoskeletal: as per Subjective / HPI Neurologic: as per Subjective / HPI epilepsy Psychiatric: as per Subjective / HPI Endocrine: as per Subjective / HPI Hematologic / Lymphatic: as per Subjective / HPI Physical Exam Constitutional: WD/WN, vitals as above Eyes: PERRL, conjunctivae normal, anicteric sclerae Neck: trachea midline, no thyromegaly Respiratory: normal respiratory effort, lungs clear to auscultation Cardiovascular: RRR, no murmur, no edema Gastrointestinal (Abdomen): soft, mild tenderness at LLQ area, no rebound pain, no distend, BS + Musculoskeletal: no cyanosis or clubbing, extremities motor strength 5/5 Neurologic: patellar DTR's 2+ bilat, sensation intact Psychiatric: A+Ox3, euthymic affect Results & Data ([facility]) Vital Signs (Past 12 Hours) Vital Signs Temp Pulse Resp BP Pulse Ox 12/06/20 13:34 36.6 C 96 H 16 141/89 H 99 Laboratory Results Abnormal lab results 12/06/20 12/06/20 Range/Units 14:00 14:00 WBC 14.19 H (4.8-10.8) K/uL MPV 10.6 H (7.4-10.4) fL Neut # (Auto) 9.74 H (1.4-6.5) K/uL [place] # (Auto) 1.73 H (0.11-0.59) K/uL Immature Gran # (Auto) 0.03 H (0.00-0.02) K/uL Total Bilirubin 2.3 H (0.2-1) mg/dl Total Protein 8.9 H (6.4-8.2) gm/dl Globulin 4.9 H (2.5-4.0) gm/dl Albumin/Globulin Ratio 0.8 L (0.9-2) Diagnostic Findings TECHNIQUE: Helical axial images of the abdomen and pelvis were obtained and displayed at 5 and 1 mm intervals. Automated dose lowering techniques and/or adjustment according to patient size were utilized for this exam. This exam was performed with intravenous contrast. COMPARISON: Comparison is made to CT abdomen and pelvis 02/05/2019 FINDINGS: Lower chest: No acute abnormality Liver: Unremarkable. No focal lesions are seen. Gallbladder and biliary tree: No calcified gallstones. Normal caliber wall. No intra- or extrahepatic biliary ductal dilation. Pancreas: Unremarkable, no focal lesions. Spleen: Unremarkable. Adrenals: Unremarkable. Kidneys and ureters: Unremarkable. Bowel: Multiple diverticula are seen. There is wall thickening and fat stranding in the sigmoid colon. A focus of free air is noted in the left lower quadrant. Lymph nodes Retroperitoneal: Unremarkable. Mesenteric: Unremarkable. Pelvic: Unremarkable. Bladder: Unremarkable. Reproductive organs: Unremarkable. Peritoneum: Normal apart from perisigmoid fat stranding. No drainable fluid collection is seen. Vessels: Atherosclerotic calcifications are seen. Abdominal wall: Unremarkable. Bones: Degenerative changes in the visualized spine. IMPRESSION: Sigmoid diverticulitis with surrounding fat stranding and free air, favored to represent perforated diverticulitis, although residua from prior perforated abscess is possible. No drainable fluid collection is seen.
--- NOTE | 2020-12-06 17:52 | Emergency Department Note ---
Impression & Plan Diverticulitis of sigmoid colon, Abdominal pain, LLQ (left lower quadrant), Leukocytosis ED Provider Note NAME: GABY DAWN AGE: 35 SEX: M ARRIVES VIA: Walk-In INFORMANT: Patient, ED PROVIDER(S): Archie Mendoza MD CHIEF COMPLAINT: Abdominal pain, diverticulitis, referred. PLAN: Disposition: Admit MEDICAL DECISION MAKING: The patient is a pleasant 35-year-old gentleman with a past medical history of diverticulitis with associated abscess in 2019, repeat diverticulitis in 2019 who presents emergency department for evaluation and admission for IV antibiotics after having outpatient CT scan that demonstrated diverticulitis wit h evidence of focus of free air. Patient symptoms began several days ago with pain in left lower quadrant and associated nausea. He denies any fevers, vomiting, diarrhea or urinary symptoms. He denies any known COVID-19 exposures. On arrival the patient is in NAD, AFVSS. He has mild LLQ abd pain without guarding or rebound. WBC 14.19K. H/H and platelets within normal limits. Chemistry without metabolic acidosis. Electrolytes and LFTs unremarkable. Lipase within normal limits. COVID-19 PCR was negative. Blood cultures were ordered and Zosyn. He is agreement of plan for admission. I did review the case with general surgery, Mita Alarcon, PAC with Dr. Paulino general surgery on-call. Agrees with plan for admission for IV antibiotics and surgery will follow for inpatient team consultation. Case was discussed with Doug Malone with Dr. Jerrell Camacho hospitalist who will sergio luate the patient for admission. Triage Nursing notes reviewed and agree them. Additional history obtained from [facility] records. Prior medical records reviewed Vital Signs: reviewed and remarkable for no significant abnormalities Differential diagnosis: Appendicitis, testicular torsion, infections, diverticulitis, UTI, obstruction, mesenteric ischemia, aortic pathology, inflammatory bowel disease, renal colic, PUD, pancreatitis, biliary pathology, hernia, volvulus, constipation, as well as other pathologies. ER treatment provided: See below. Diagnostics interpreted by me: Cardiac Monitoring: An order for continuous cardiac monitoring was placed and demonstrated NSR, 74 bpm, no ectopy. Laboratory studies: See below Imaging studies: Outpatient CT CLINICAL INDICATION: MN ^11:15 GASTRO PREP ^ACUTE DIVERTICULITIS,HX PERFORATED ABSCESS. TECHNIQUE: Helical axial images of the abdomen and pelvis were obtained and displayed at 5 and 1 mm intervals. Automated dose lowering techniques and/or adjustment according to patient size were utilized for this exam. This exam was performed with intravenous contrast. COMPARISON: Comparison is made to CT abdomen and pelvis 02/05/2019 FINDINGS: Lower chest: No acute abnormality Liver: Unremarkable. No focal lesions are seen. Gallbladder and biliary tree: No calcified gallstones. Normal caliber wall. No intra- or extrahepatic biliary ductal dilation. Pancreas: Unremarkable, no focal lesions. Spleen: Unremarkable. Adrenals: Unremarkable. Kidneys and ureters: Unremarkable. Bowel: Multiple diverticula are seen. There is wall thickening and fat stranding in the sigmoid colon. A focus of free air is noted in the left lower quadrant. Lymph nodes Retroperitoneal: Unremarkable. Mesenteric: Unremarkable. Pelvic: Unremarkable. Bladder: Unremarkable. Reproductive organs: Unremarkable. Peritoneum: Normal apart from perisigmoid fat stranding. No drainable fluid collection is seen. Vessels: Atherosclerotic calcifications are seen. Abdominal wall: Unremarkable. Bones: Degenerative changes in the visualized spine. IMPRESSION: Sigmoid diverticulitis with surrounding fat stranding and free air, favored to represent perforated diverticulitis, although residua from prior perforated abscess is possible. No drainable fluid collection is seen. ACT 112: Negative or not required by law. Electronically signed by: Raz Gamino M.D. 12/06/2020 12:10 PM Consultation(s): Mita Alarcon, general surgery PAC with Dr. Paulino general surgery on-call. Doug MaloneNP with Dr. Jerrell Camacho hospitalist who will evaluate the patient for admission. HPI: The patient is a pleasant 35-year-old gentleman with a past medical history of diverticulitis with associated abscess in 2018, repeat diverticulitis in 2020 who presents emergency department for evaluation and admission for IV antibiotics after having outpatient CT scan that demonstrated diverticulitis with evidence of focus of free air. Patient symptoms began several days ago with pain in left lower quadrant and associated nausea. He denies any fevers, vomiting, diarrhea or urinary symptoms. He denies any known COVID-19 exposures. ROS: See above HPI for pertinent positives & negatives. A total of 10 systems reviewed and were otherwise negative. PAST MEDICAL HISTORY:See Below PAST SURGICAL HISTORY:See Below FAMILY HISTORY:See Below SOCIAL HISTORY:See Below HOME MEDICATIONS:See Below ALLERGIES:See Below VITALS:See Below PHYSICAL EXAMINATION: GENERAL: Awake, alert, well-appearing, in no distress HENT: Normocephalic, atraumatic. Oropharynx with dry mucous membranes and otherwise unremarkable. EYES: Normal conjunctiva. Sclera non-icteric. NECK: Supple. No nuchal rigidity. FROM. No JVD. RESPIRATORY: Clear to auscultation. CARDIAC: Regular rate, normal rhythm. Extremities warm and well perfused. Pulses equal. ABDOMEN: Soft, non-distended. Mild LLQ tenderness to palpation. No rebound or guarding. No masses. RECTAL: Deferred. MUSCULOSKELETAL: Chest examination reveals no tenderness. The back is symmetrical on inspection without obvious abnormality. There is no CVA tenderness to palpation. No joint edema. LOWER EXTREMITIES: Calves are equal size bilaterally and non-tender. No edema. No discoloration. NEURO: Normal sensorium. No sensory or motor deficits noted. SKIN: No rash or jaundice noted. Archie Mendoza MD Past Med/Surg History Medical History Diverticulitis of sigmoid colon Epilepsy Gilbert syndrome Migraine Surgical History H/O drainage of abscess IR ASPIRATION ABSCESS/COLLECTION 2019 diverticulitis [place] teeth extracted Family History Other Diverticulitis of sigmoid colon Social History Smoking Status: Never smoker Hx Alcohol Use: Yes Alcohol type: beer, wine and hard liquor Alcohol Intake Frequency: 2-3 x/Week Hx Substance Use: No Preferred Language: Guamanian Communication Ability: Effective Creative Perfumer Required: No Beliefs That Will Affect Care: None marital status: Current Living Situation: Spouse and Family current occupational status: employed Other Information That Helps Us Care for You: No Feels Safe at Home: Yes Safety Concerns: Feels Safe At This Time Assistive Devices: Glasses Assistive Devices Comment: retainer Allergies Allergies Allergy/AdvReac Type Severity Reaction Status Date / Time No Known Allergies Allergy Unverified 12/06/20 14:19 Home Meds Home Medications Medication Instructions Recorded Confirmed No Known Home Medications 12/06/20 12/06/20 Results & Data (ED) Vital Signs Vital Signs - 24 hr 12/06/20 13:34 Temperature 36.6 C Temperature Source Oral Pulse Rate 96 H Respiratory Rate 16 Blood Pressure 141/89 H Blood Pressure Mean 106 Pulse Oximetry 99 Oxygen Delivery Method Room Air Sepsis Recent Fever Within 48 Hours No Sepsis New/Unexplained Change in Mental Status N/A Sepsis Action Taken by Nursing No Action Required Laboratory Data Attestation: I reviewed the patient's lab results. Result diagrams: 12/06/20 14:00 12/06/20 14:00 Lab Results 12/06/20 12/06/20 12/06/20 Range/Units 14:00 14:00 15:32 WBC 14.19 H (4.8-10.8) K/uL RBC 5.63 (4.7-6.1) M/uL Hgb 16.5 (14.0-18.0) g/dL Hct 47.1 (42-52) % MCV 83.7 (80-100) fL MCH 29.3 (25-34) pg MCHC 35.0 (32-36) g/dL RDW Std Deviation 40.5 (36.4-46.3) fL RDW Coeff of Heath 13.4 (11.5-14.5) % Plt Count 248 (130-400) K/uL MPV 10.6 H (7.4-10.4) fL Immature Gran % (Auto) 0.2 % Neut % (Auto) 68.6 % Lymph % (Auto) 17.5 % [place] % (Auto) 12.2 % Eos % (Auto) 1.1 % Baso % (Auto) 0.4 % Neut # (Auto) 9.74 H (1.4-6.5) K/uL Lymph # (Auto) 2.48 (1.2-3.4) K/uL [place] # (Auto) 1.73 H (0.11-0.59) K/uL Eos # (Auto) 0.15 (0-0.5) K/uL Baso # (Auto) 0.06 (0-0.2) K/uL Immature Gran # (Auto) 0.03 H (0.00-0.02) K/uL Sodium 136 (136-145) mmol/L Potassium 3.8 (3.5-5.1) mmol/L Chloride 104 (98-107) mmol/L Carbon Dioxide 24 (21-32) mmol/L Anion Gap 8.0 (3-11) BUN 17 (7-18) mg/dl Creatinine 1.05 (0.6-1.4) mg/dl Est Cr Clr Drug Dosing 127.8 ml/min Est GFR ( Amer) 105.3 ml/min Est GFR (Non-Af Amer) 90.9 ml/min BUN/Creatinine Ratio 16.1 (10-20) Glucose 83 (70-99) mg/dl Calcium 9.6 (8.5-10.1) mg/dl Total Bilirubin 2.3 H (0.2-1) mg/dl AST 20 (15-37) U/L ALT 32 (12-78) U/L Alkaline Phosphatase 68 (45-117) U/L Total Protein 8.9 H (6.4-8.2) gm/dl Albumin 4.0 (3.4-5.0) gm/dl Globulin 4.9 H (2.5-4.0) gm/dl Albumin/Globulin Ratio 0.8 L (0.9-2) Lipase 79 (73-393) U/L Specimen Hemolysis COVID-19 Eval Order Covid19 at [facility] SARS-CoV-2 (PCR) (Negative) 12/06/20 Range/Units 15:32 WBC (4.8-10.8) K/uL RBC (4.7-6.1) M/uL Hgb (14.0-18.0) g/dL Hct (42-52) % MCV (80-100) fL MCH (25-34) pg MCHC (32-36) g/dL RDW Std Deviation (36.4-46.3) fL RDW Coeff of Heath (11.5-14.5) % Plt Count (130-400) K/uL MPV (7.4-10.4) fL Immature Gran % (Auto) % Neut % (Auto) % Lymph % (Auto) % [place] % (Auto) % Eos % (Auto) % Baso % (Auto) % Neut # (Auto) (1.4-6.5) K/uL Lymph # (Auto) (1.2-3.4) K/uL [place] # (Auto) (0.11-0.59) K/uL Eos # (Auto) (0-0.5) K/uL Baso # (Auto) (0-0.2) K/uL Immature Gran # (Auto) (0.00-0.02) K/uL Sodium (136-145) mmol/L Potassium (3.5-5.1) mmol/L Chloride (98-107) mmol/L Carbon Dioxide (21-32) mmol/L Anion Gap (3-11) BUN (7-18) mg/dl Creatinine (0.6-1.4) mg/dl Est Cr Clr Drug Dosing ml/min Est GFR ( Amer) ml/min Est GFR (Non-Af Amer) ml/min BUN/Creatinine Ratio (10-20) Glucose (70-99) mg/dl Calcium (8.5-10.1) mg/dl Total Bilirubin (0.2-1) mg/dl AST (15-37) U/L ALT (12-78) U/L Alkaline Phosphatase (45-117) U/L Total Protein (6.4-8.2) gm/dl Albumin (3.4-5.0) gm/dl Globulin (2.5-4.0) gm/dl Albumin/Globulin Ratio (0.9-2) Lipase (73-393) U/L Specimen Hemolysis COVID-19 Eval Order SARS-CoV-2 (PCR) NEGATIVE (Negative) Administered Medications Sodium Chloride (Nss 1000ml) 1,000 mls @ 100 mls/hr IV .Q10H SALINA Stop: 01/05/21 18:30 Last Infusion: 12/06/20 23:56 Dose: 100 mls/hr Documented by: [id number] Admin: 12/06/20 21:13 Dose: 125 mls/hr Documented by: [id number] Discontinued Medications Sodium Chloride (Nss 1000ml) 2,000 mls @ 999 mls/hr IV .Q2H1M ONE Stop: 12/06/20 17:01 Last Infusion: 12/06/20 20:30 Dose: 0 mls/hr Documented by: [id number] Admin: 12/06/20 15:37 Dose: 999 mls/hr Documented by: [id number] Piperacillin Sod/Tazobactam Sod (Zosyn) 4.5 gm in 120 mls @ 240 mls/hr IV NOW ONE Stop: 12/06/20 15:30 Last Infusion: 12/06/20 18:15 Dose: 0 mls/hr Documented by: [id number] Admin: 12/06/20 15:37 Dose: 240 mls/hr Documented by: [id number] Miscellaneous Information (Consult Pharmacy) 1 ea N/A NOW STA Stop: 12/06/20 16:26 Last Admin: 12/06/20 19:00 Dose: Not Given Documented by: [id number] Discharge Plan Visit Data Chief Complaint: Abdominal Pain Stated Complaint: ABDOMINAL TENDERNESS ED Provider: Archie Mendoza Discharge Problem: Diverticulitis of sigmoid colon, Abdominal pain, LLQ (left lower quadrant), Leukocytosis Patient Disposition: Admitted As Inpatient Discharge Instructions Interventions: ED Discharge Assessment Last Done: 12/06/20 18:15 Discharge Problem: Leukocytosis Qualifiers: Leukocytosis type: unspecified Qualified Code(s): D72.829 - Elevated white blood cell count, unspecified
[2020-12-06] MEDS ORDERED: MoRPHine SULFATE 2 MG/ML CARP IV PRN (18:31)
[2020-12-06] MEDS: SODIUM CHLORIDE 0.9% 1000ML 1,000 ML IV SCH (21:13)
[2020-12-07] MEDS: SODIUM CHLORIDE 0.9% 1000ML 1,000 ML IV SCH (06:42)
[2020-12-07] MEDS ORDERED: PIPERACILL/TAZOBAC CONSULT ACTIVE PRN (08:37)
[2020-12-07] MEDS ORDERED: PIPERACILLIN/TAZOBACTAM 3.375 GM in DEXTROSE 5% 100 ML IV STA (08:39)
[2020-12-07] MEDS ORDERED: ONDANSETRON INJ 2 MG/ML 2 ML VIAL IV PRN (09:05)
--- NOTE | 2020-12-07 09:10 | Surgery Progress Note ---
Date of Service December 07, 2020 Assessment & Plan (1) Diverticulitis of sigmoid colon: Plan: Diverticulitis with microperforation 2nd episode of complicated diverticulitis. (last episode in 2019 required IR drainage for large 7 cm pelvic abscess0 AVSS labs pending this am Plan: Continue conservative measures: IV fluids, IV Zosyn, pain management as needed ambulate in hallway okay for clear liquids, advised to take slowly Should follow-up with colorectal Dr. Bolden given recurrent diverticulitis and previously established with her for discussion of sigmoid colectomy. Had colonoscopy in Mar 2019. Dr. Paulino has seen patient agrees with above. Admission and Anticipated Discharge Date Admission Date: December 06, 2020 Subjective feeling well pain is about 50% better, all in left lower abdomen no nausea or vomiting diarrhea this morning, no blood in stools urinating without difficulty Physical Exam Constitutional: WD/WN, vitals as above no acute distress and not ill appearing Respiratory: normal respiratory effort; no respiratory distress, no labored breathing and no retractions Gastrointestinal (Abdomen): Inspection/Auscultation: abdomen normal to inspec tion and + hypoactive bowel sounds; abdomen not distended Percussion/Palpation: + abdomen tender (very minimal tenderness in LLQ on deep palpation) and abdomen soft; no guarding and abdomen not rigid Skin: no rashes, warm and dry Psychiatric: A+Ox3, euthymic affect Results & Data ([facility]) Vital Signs (Past 12 Hours) Vital Signs Temp Pulse Pulse Resp BP BP Pulse Ox 12/07/20 07:00 36.6 C 69 18 123/72 98 12/07/20 04:00 36.8 C 74 20 148/82 H 98 12/07/20 00:45 78 12/06/20 23:00 37 C 74 20 149/110 H 147/100 H 98 Laboratory Results 12/07/20 12/07/20 12/06/20 Range/Units 09:11 09:11 17:40 WBC 9.02 (4.8-10.8) K/uL RBC 5.14 (4.7-6.1) M/uL Hgb 14.8 (14.0-18.0) g/dL Hct 43.2 (42-52) % MCV 84.0 (80-100) fL MCH 28.8 (25-34) pg MCHC 34.3 (32-36) g/dL RDW Std Deviation 40.1 (36.4-46.3) fL RDW Coeff of Heath 13.3 (11.5-14.5) % Plt Count 220 (130-400) K/uL MPV 10.5 H (7.4-10.4) fL Immature Gran % (Auto) 0.2 % Neut % (Auto) 68.8 % Lymph % (Auto) 17.6 % [place] % (Auto) 11.0 % Eos % (Auto) 2.0 % Baso % (Auto) 0.4 % Neut # (Auto) 6.20 (1.4-6.5) K/uL Lymph # (Auto) 1.59 (1.2-3.4) K/uL [place] # (Auto) 0.99 H (0.11-0.59) K/uL Eos # (Auto) 0.18 (0-0.5) K/uL Baso # (Auto) 0.04 (0-0.2) K/uL Immature Gran # (Auto) 0.02 (0.00-0.02) K/uL Sodium 140 (136-145) mmol/L Potassium 3.4 L (3.5-5.1) mmol/L Chloride 110 H (98-107) mmol/L Carbon Dioxide 23 (21-32) mmol/L Anion Gap 7.0 (3-11) BUN 15 (7-18) mg/dl Creatinine 0.82 (0.6-1.4) mg/dl Est Cr Clr Drug Dosing 163.7 ml/min Est GFR ( Amer) 131.9 ml/min Est GFR (Non-Af Amer) 113.8 ml/min BUN/Creatinine Ratio 17.7 (10-20) Glucose 91 (70-99) mg/dl Lactate 1.1 (0.4-2.0) mmol/L Calcium 8.7 (8.5-10.1) mg/dl Magnesium 2.3 (1.8-2.4) mg/dl Total Bilirubin 1.8 H (0.2-1) mg/dl AST 12 L (15-37) U/L ALT 26 (12-78) U/L Alkaline Phosphatase 60 (45-117) U/L Total Protein 7.4 (6.4-8.2) gm/dl Albumin 3.3 L (3.4-5.0) gm/dl Globulin 4.1 H (2.5-4.0) gm/dl Albumin/Globulin Ratio 0.8 L (0.9-2) Lipase (73-393) U/L Specimen Hemolysis COVID-19 Eval Order SARS-CoV-2 (PCR) (Negative) 12/06/20 12/06/20 12/06/20 Range/Units 15:32 15:32 14:00 WBC (4.8-10.8) K/uL RBC (4.7-6.1) M/uL Hgb (14.0-18.0) g/dL Hct (42-52) % MCV (80-100) fL MCH (25-34) pg MCHC (32-36) g/dL RDW Std Deviation (36.4-46.3) fL RDW Coeff of Heath (11.5-14.5) % Plt Count (130-400) K/uL MPV (7.4-10.4) fL Immature Gran % (Auto) % Neut % (Auto) % Lymph % (Auto) % [place] % (Auto) % Eos % (Auto) % Baso % (Auto) % Neut # (Auto) (1.4-6.5) K/uL Lymph # (Auto) (1.2-3.4) K/uL [place] # (Auto) (0.11-0.59) K/uL Eos # (Auto) (0-0.5) K/uL Baso # (Auto) (0-0.2) K/uL Immature Gran # (Auto) (0.00-0.02) K/uL Sodium 136 (136-145) mmol/L Potassium 3.8 (3.5-5.1) mmol/L Chloride 104 (98-107) mmol/L Carbon Dioxide 24 (21-32) mmol/L Anion Gap 8.0 (3-11) BUN 17 (7-18) mg/dl Creatinine 1.05 (0.6-1.4) mg/dl Est Cr Clr Drug Dosing 127.8 ml/min Est GFR ( Amer) 105.3 ml/min Est GFR (Non-Af Amer) 90.9 ml/min BUN/Creatinine Ratio 16.1 (10-20) Glucose 83 (70-99) mg/dl Lactate (0.4-2.0) mmol/L Calcium 9.6 (8.5-10.1) mg/dl Magnesium (1.8-2.4) mg/dl Total Bilirubin 2.3 H (0.2-1) mg/dl AST 20 (15-37) U/L ALT 32 (12-78) U/L Alkaline Phosphatase 68 (45-117) U/L Total Protein 8.9 H (6.4-8.2) gm/dl Albumin 4.0 (3.4-5.0) gm/dl Globulin 4.9 H (2.5-4.0) gm/dl Albumin/Globulin Ratio 0.8 L (0.9-2) Lipase 79 (73-393) U/L Specimen Hemolysis COVID-19 Eval Order Covid19 at [facility] SARS-CoV-2 (PCR) NEGATIVE (Negative) 12/06/20 Range/Units 14:00 WBC 14.19 H (4.8-10.8) K/uL RBC 5.63 (4.7-6.1) M/uL Hgb 16.5 (14.0-18.0) g/dL Hct 47.1 (42-52) % MCV 83.7 (80-100) fL MCH 29.3 (25-34) pg MCHC 35.0 (32-36) g/dL RDW Std Deviation 40.5 (36.4-46.3) fL RDW Coeff of Heath 13.4 (11.5-14.5) % Plt Count 248 (130-400) K/uL MPV 10.6 H (7.4-10.4) fL Immature Gran % (Auto) 0.2 % Neut % (Auto) 68.6 % Lymph % (Auto) 17.5 % [place] % (Auto) 12.2 % Eos % (Auto) 1.1 % Baso % (Auto) 0.4 % Neut # (Auto) 9.74 H (1.4-6.5) K/uL Lymph # (Auto) 2.48 (1.2-3.4) K/uL [place] # (Auto) 1.73 H (0.11-0.59) K/uL Eos # (Auto) 0.15 (0-0.5) K/uL Baso # (Auto) 0.06 (0-0.2) K/uL Immature Gran # (Auto) 0.03 H (0.00-0.02) K/uL Sodium (136-145) mmol/L Potassium (3.5-5.1) mmol/L Chloride (98-107) mmol/L Carbon Dioxide (21-32) mmol/L Anion Gap (3-11) BUN (7-18) mg/dl Creatinine (0.6-1.4) mg/dl Est Cr Clr Drug Dosing ml/min Est GFR ( Amer) ml/min Est GFR (Non-Af Amer) ml/min BUN/Creatinine Ratio (10-20) Glucose (70-99) mg/dl Lactate (0.4-2.0) mmol/L Calcium (8.5-10.1) mg/dl Magnesium (1.8-2.4) mg/dl Total Bilirubin (0.2-1) mg/dl AST (15-37) U/L ALT (12-78) U/L Alkaline Phosphatase (45-117) U/L Total Protein (6.4-8.2) gm/dl Albumin (3.4-5.0) gm/dl Globulin (2.5-4.0) gm/dl Albumin/Globulin Ratio (0.9-2) Lipase (73-393) U/L Specimen Hemolysis COVID-19 Eval Order SARS-CoV-2 (PCR) (Negative)
[2020-12-07 09:29] LABS: Basophils # (auto) 0.04 K/uL (0-0.2); Basophils % (auto) 0.4 %; Eosinophils # (auto) 0.18 K/uL (0-0.5); Hematocrit (blood only) 43.2 % (42-52); Hemoglobin 14.8 g/dL (14.0-18.0); Immature Granulocytes # (auto) 0.02 K/uL (0.00-0.02); Immature Granulocytes % (auto) 0.2 %; Lymphocytes # (auto) 1.59 K/uL (1.2-3.4); Lymphocytes % (auto) 17.6 %; Mean Corpuscular Hemoglobin 28.8 pg (25-34); Mean Corpuscular Hgb Conc 34.3 g/dL (32-36); Mean Platelet Volume 10.5 fL (7.4-10.4); Monocytes # (auto) 0.99 K/uL (0.11-0.59); Neutrophils % (auto) 68.8 %; Platelet Count 220 K/uL (130-400); RDW Coefficient of Variation 13.3 % (11.5-14.5); RDW Standard Deviation 40.1 fL (36.4-46.3); Red Blood Count 5.14 M/uL (4.7-6.1); White Blood Count 9.02 K/uL (4.8-10.8)
[2020-12-07 09:55] LABS: Albumin Level 3.3 gm/dl (3.4-5.0); BUN Creatinine Ratio 17.7 (10-20); Calcium 8.7 mg/dl (8.5-10.1); Creatinine Clr Calc Pharmacy 163.7 ml/min; Est GFR (African American) 131.9 ml/min; Est GFR (Non-African American) 113.8 ml/min; Magnesium 2.3 mg/dl (1.8-2.4); Potassium 3.4 mmol/L (3.5-5.1)
[2020-12-07 10:05] LABS: Albumin Globulin Ratio 0.8 (0.9-2); Bilirubin,Total 1.8 mg/dl (0.2-1); Globulin 4.1 gm/dl (2.5-4.0); Total Protein 7.4 gm/dl (6.4-8.2)
[2020-12-07] MEDS ORDERED: POTASSIUM CHLORIDE CRTAB 20 MEQ TABCR PO ONE (10:24)
[2020-12-07] MEDS ORDERED: POTASSIUM CHLORIDE 30 MEQ in SODIUM CHLORIDE 0.9% 1000ML 1,000 ML IV SCH (10:30)
[2020-12-07] MEDS: LACTOBACILLUS ACIDOPHILUS 1 GM PACK PO SCH ×2 (11:40→17:04)
[2020-12-07] MEDS: NSS + 20MEQ KCL 20 MEQ/1,000 ML BAG IV SCH ×2 (11:40→21:40)
--- NOTE | 2020-12-07 12:44 | Hospitalist Progress Note ---
Date of Service December 07, 2020 Assessment & Plan (1) Diverticulitis of sigmoid colon: Plan: Patient is a 35 yr male with H/O diverticulitis, history of epilepsy, chronic idiopathic constipation and other medical problems with abdominal pain x 6 days that has slowly worsened and outpatient CT abd/pelvis showed sigmoid diverticulitis with possible microperforation. Acute diverticulitis with microperforation H/O diverticulitis with pelvic abscess in 2019 requiring IR drainage -CT ABD:Sigmoid diverticulitis with surrounding fat stranding and free air, favored to represent perforated diverticulitis, although residua from prior perforated abscess is possible. No drainable fluid collection is seen. -Appreciate surgery input Continue IV fluids, Zosyn Start on clear liquid diet We will need to follow-up with Dr. Bolden given history of recurrent diverticu litis for possible sigmoid colectomy Diarrhea Likely due to antibiotics Will consider to check for C. difficile if persistent Hypokalemia Replace electrolytes as needed (2) Epilepsy: Plan: Remote history in his teens. Not on antiepileptic medication Gilbert's syndrome As per records Monitor DVT Px: SCDs Code status: FULL CODE Admission and Anticipated Discharge Date Admission Date: December 06, 2020 Subjective Patient is seen and examined at bedside Abdominal tenderness much improved States having diarrhea today Denies nausea, vomiting, chest pain, dyspnea Offers no other complaints Review of Systems Review of Systems: All systems reviewed & are unremarkable except as noted in Subjective Physical Exam Physical Exam: Physical Exam: Vitals signs as noted above General Appearance:Moderately built and nourished, no apparent distress Head: normocephalic, Atraumatic Eyes: normal inspection, EOMI Neck: supple, Trachea midline Respiratory/Chest: Normal breath sounds, CTA, No accessory muscle use Cardiovascular: S1, S2, No murmur Abdomen/GI:Soft, Non tender, no guarding, no rigidity, bowel sounds present Extremities/Musculoskeletal:normal inspection, no edema Neurologic/Psych:AAOX3, grossly no focal neurological deficits Skin: normal color, warm Results & Data Results & Data ([facility]) Vital Signs (Past 12 Hours) Vital Signs Temp Pulse Pulse Resp BP Pulse Ox 12/07/20 09:00 64 12/07/20 07:00 36.6 C 69 18 123/72 98 12/07/20 04:00 36.8 C 74 20 148/82 H 98 12/07/20 00:45 78 Laboratory Results Short CBC 12/06/20 12/07/20 Range/Units 14:00 09:11 WBC 14.19 H 9.02 (4.8-10.8) K/uL Hgb 16.5 14.8 (14.0-18.0) g/dL Hct 47.1 43.2 (42-52) % Plt Count 248 220 (130-400) K/uL BMP 12/06/20 12/07/20 14:00 09:11 Sodium 136 140 Potassium 3.8 3.4 L Chloride 104 110 H Carbon Dioxide 24 23 BUN 17 15 Creatinine 1.05 0.82 Glucose 83 91 Calcium 9.6 8.7 Liver Function 12/06/20 12/07/20 Range/Units 14:00 09:11 Total Bilirubin 2.3 H 1.8 H (0.2-1) mg/dl AST 20 12 L (15-37) U/L ALT 32 26 (12-78) U/L Alkaline Phosphatase 68 60 (45-117) U/L Albumin 4.0 3.3 L (3.4-5.0) gm/dl
[2020-12-07] MEDS: PIPERACILLIN/TAZOBACTAM 3.375 GM in DEXTROSE 5% 100 ML IV SCH ×2 (13:49→22:02)
--- NOTE | 2020-12-08 05:55 | Surgery Progress Note ---
Date of Service December 08, 2020 Assessment & Plan (1) Diverticulitis of sigmoid colon: Plan: Patient has been admitted by the hospitalist service. Continue antibiotics in the form of Zosyn while hospitalized. May be prudent at time of discharge for patient to complete a course of oral antibiotics We will consider advancing to full liquid diet as the patient's abdominal exam is completely benign A.m. labs this morning are pending Continue analgesics as needed Continue ambulation as able Admission and Anticipated Discharge Date Admission Date: December 06, 2020 Supervising Physician Co-Signing Physician Notes I personally saw and evaluated the patient with Marlon Portillo PA-C and agree with the assessment and plan. 35 yo male with diverticulitis, improving -Advance to fulls, will advance to low fiber tomorrow if continues to improve -D/C Zosyn, Start PO Augmentin -Tentative discharge tomorrow with outpatient follow up with colorectal surgery Subjective Patient is resting comfortably in bed without any complaints. He notes that his abdominal pain that was present at time of mission is markedly improved and he is pain-free at this time. He is tolerating clear liquids without any nausea or vomiting or exacerbation of his abdominal pain. He denies any fevers, shakes, chills. Notes he is passing flatus but is not having much in the way of bowel movements. He denies any fevers, shakes, chills. Physical Exam Respiratory: normal respiratory effort; no respiratory distress and no labored breathing Gastrointestinal (Abdomen): Abdomen is soft, nondistended, and nontender to palpation. Bowel sounds are present. Palpation did not cause pain. Results & Data ([facility]) Vital Signs (Past 12 Hours) Vital Signs Temp Pulse Pulse Resp BP Pulse Ox 12/08/20 03:42 36.5 C 66 18 132/79 98 12/07/20 23:26 78 12/07/20 23:05 36.8 C 75 18 147/91 H 100 12/07/20 19:26 36.8 C 73 18 132/96 99 PG Care Time/CCT Total # of Minutes Spent Total Time Spent with Patient: Total time spent is greater than 50% in coordination of care (as documented) at patient's floor/unit and/or counseling patient: Coding Level of Care Code 04401 Subseq Hosp Care Lvl 1 Diagnoses Diverticulitis of sigmoid colon K57.32
[2020-12-08] MEDS: PIPERACILLIN/TAZOBACTAM 3.375 GM in DEXTROSE 5% 100 ML IV SCH (06:01)
[2020-12-08] MEDS: NSS + 20MEQ KCL 20 MEQ/1,000 ML BAG IV SCH ×2 (07:44→17:56)
[2020-12-08] MEDS: LACTOBACILLUS ACIDOPHILUS 1 GM PACK PO SCH ×3 (07:51→17:06)
[2020-12-08 08:11] LABS: Hematocrit (blood only) 42.2 % (42-52); Hemoglobin 14.5 g/dL (14.0-18.0); Mean Corpuscular Hemoglobin 28.9 pg (25-34); Mean Corpuscular Hgb Conc 34.4 g/dL (32-36); Mean Corpuscular Volume 84.2 fL (80-100); Mean Platelet Volume 10.4 fL (7.4-10.4); Platelet Count 226 K/uL (130-400); RDW Coefficient of Variation 13.3 % (11.5-14.5); RDW Standard Deviation 39.9 fL (36.4-46.3); Red Blood Count 5.01 M/uL (4.7-6.1); White Blood Count 7.71 K/uL (4.8-10.8)
[2020-12-08 08:47] LABS: Albumin Globulin Ratio 0.9 (0.9-2); Albumin Level 3.3 gm/dl (3.4-5.0); BUN Creatinine Ratio 9.8 (10-20); Bilirubin,Total 1.1 mg/dl (0.2-1); Calcium 8.7 mg/dl (8.5-10.1); Creatinine Clr Calc Pharmacy 161.7 ml/min; Est GFR (African American) 131.2 ml/min; Est GFR (Non-African American) 113.2 ml/min; Globulin 3.8 gm/dl (2.5-4.0); Potassium 3.4 mmol/L (3.5-5.1); Total Protein 7.1 gm/dl (6.4-8.2)
[2020-12-08] MEDS ORDERED: POTASSIUM CHLORIDE CRTAB 20 MEQ TABCR PO ONE (09:30)
--- NOTE | 2020-12-08 16:25 | Hospitalist Progress Note ---
Date of Service December 08, 2020 Assessment & Plan (1) Diverticulitis of sigmoid colon: Plan: Patient is a 35 yr male with H/O diverticulitis, history of epilepsy, chronic idiopathic constipation and other medical problems with abdominal pain x 6 days that has slowly worsened and outpatient CT abd/pelvis showed sigmoid diverticulitis with possible microperforation. Acute diverticulitis with microperforation H/O diverticulitis with pelvic abscess in 2019 requiring IR drainage -CT ABD:Sigmoid diverticulitis with surrounding fat stranding and free air, favored to represent perforated diverticulitis, although residua from prior perforated abscess is possible. No drainable fluid collection is seen. Continue IV fluids Zosyn transitioned to Augmentin Diet advanced to full liquids We will need to follow-up with Dr. Bolden given history of recurrent diver ticulitis for possible sigmoid colectomy Appreciate surgery input Diarrhea Likely due to antibiotics Check stool for C. difficile Hypokalemia Replace electrolytes as needed (2) Epilepsy: Plan: Remote history in his teens. Not on antiepileptic medication Gilbert's syndrome As per records Monitor DVT Px: SCDs Code status: FULL CODE Admission and Anticipated Discharge Date Admission Date: December 06, 2020 Subjective Patient is seen and examined at bedside Continues to have diarrhea Abdominal pain resolved Denies nausea, vomiting, chest pain, dyspnea Offers no other complaints Review of Systems Review of Systems: All systems reviewed & are unremarkable except as noted in Subjective Physical Exam Physical Exam: Physical Exam: Vitals signs as noted above General Appearance:Moderately built and nourished, no apparent distress Head: normocephalic, Atraumatic Eyes: normal inspection, EOMI Neck: supple, Trachea midline Respiratory/Chest: Normal breath sounds, CTA, No accessory muscle use Cardiovascular: S1, S2, No murmur Abdomen/GI:Soft, Non tender, no guarding, no rigidity, bowel sounds present Extremities/Musculoskeletal:normal inspection, no edema Neurologic/Psych:AAOX3, grossly no focal neurological deficits Skin: normal color, warm Results & Data Results & Data ([facility]) Vital Signs (Past 12 Hours) Vital Signs Temp Pulse Pulse Resp BP Pulse Ox 12/08/20 15:52 62 12/08/20 15:22 36.6 C 72 16 117/65 99 12/08/20 11:46 36.8 C 63 16 126/85 99 12/08/20 08:00 64 12/08/20 07:23 36.7 C 72 16 117/75 98 Laboratory Results Short CBC 12/08/20 Range/Units Unknown WBC 7.71 (4.8-10.8) K/uL Hgb 14.5 (14.0-18.0) g/dL Hct 42.2 (42-52) % Plt Count 226 (130-400) K/uL BMP 12/08/20 Unknown Sodium 141 Potassium 3.4 L Chloride 112 H Carbon Dioxide 23 BUN 8 D Creatinine 0.83 Glucose 92 Calcium 8.7 Liver Function 12/08/20 Range/Units Unknown Total Bilirubin 1.1 H (0.2-1) mg/dl AST 12 L (15-37) U/L ALT 25 (12-78) U/L Alkaline Phosphatase 53 (45-117) U/L Albumin 3.3 L (3.4-5.0) gm/dl
[2020-12-08] MEDS: AMOXICILLIN/CLAVULANATE 875 MG TAB PO SCH (17:05)
[2020-12-09] MEDS: NSS + 20MEQ KCL 20 MEQ/1,000 ML BAG IV SCH (04:46)
--- NOTE | 2020-12-09 05:49 | Surgery Progress Note ---
Date of Service December 09, 2020 Assessment & Plan (1) Diverticulitis of sigmoid colon: Plan: Patient has been admitted by the hospitalist service. Continue antibiotics. Yesterday patient was transitioned from intravenous Zosyn to oral Augmentin. This should continue at time of discharge As clinical improvement continues we will advance patient to low fiber diet this morning. Continue analgesics as needed Solid food as tolerated he can likely be discharged on oral antibiotics with plans for patient to follow-up with his colorectal surgeon as an outpatient. Admission and Anticipated Discharge Date Admission Date: December 06, 2020 Supervising Physician Co-Signing Physician Notes I personally saw and evaluated the patient with Marlon Portillo PA-C and agree with the assessment and plan. 35 yo male with diverticulitis, improving -Advance to low fiber diet, if tolerates ok to d/c home today with 14 day course of Augmentin -Outpatient follow up with colorectal surgery as he is already established Subjective Patient is resting comfortably in bed. He offers no complaints this morning. Says with full liquid diet yesterday this did not exacerbate an abdominal pain. He denies any nausea or vomiting. He notes his bowels are moving. He denies any fevers, shakes, chills. He denies any shortness of breath. He is ambulating without difficulty and urinating without difficulty. Physical Exam Gastrointestinal (Abdomen): Abdomen is soft, nontender, and nondistended. Palpation even in a deep fashion did not cause any pain. Bowel sounds are prese nt. Results & Data ([facility]) Vital Signs (Past 12 Hours) Vital Signs Temp Pulse Pulse Resp BP Pulse Ox 12/09/20 03:42 36.7 C 67 18 127/83 98 12/09/20 00:24 64 12/08/20 23:09 36.8 C 55 L 16 134/81 98 12/08/20 19:52 36.7 C 71 18 151/89 H 97 PG Care Time/CCT Total # of Minutes Spent Total Time Spent with Patient: Total time spent is greater than 50% in coordination of care (as documented) at patient's floor/unit and/or counseling patient: Coding Level of Care Code 48839 Subseq Hosp Care Lvl 1 Diagnoses Diverticulitis of sigmoid colon K57.32
[2020-12-09 06:07] LABS: Hematocrit (blood only) 41.9 % (42-52); Hemoglobin 14.2 g/dL (14.0-18.0); Mean Corpuscular Hemoglobin 29.2 pg (25-34); Mean Corpuscular Hgb Conc 33.9 g/dL (32-36); Mean Platelet Volume 10.5 fL (7.4-10.4); Platelet Count 252 K/uL (130-400); RDW Coefficient of Variation 13.2 % (11.5-14.5); Red Blood Count 4.87 M/uL (4.7-6.1)
[2020-12-09 06:47] LABS: Albumin Globulin Ratio 0.9 (0.9-2); Albumin Level 3.3 gm/dl (3.4-5.0); BUN Creatinine Ratio 7.5 (10-20); Bilirubin,Total 0.9 mg/dl (0.2-1); Calcium 8.7 mg/dl (8.5-10.1); Creatinine Clr Calc Pharmacy 152.5 ml/min; Est GFR (African American) 128.1 ml/min; Est GFR (Non-African American) 110.5 ml/min; Globulin 3.8 gm/dl (2.5-4.0); Total Protein 7.1 gm/dl (6.4-8.2)
[2020-12-09] MEDS: AMOXICILLIN/CLAVULANATE 875 MG TAB PO SCH (08:13)
[2020-12-09] MEDS: LACTOBACILLUS ACIDOPHILUS 1 GM PACK PO SCH ×2 (08:13→11:06)
[2020-12-09 08:33] LABS: Magnesium 2.2 mg/dl (1.8-2.4)
--- NOTE | 2020-12-09 10:10 | Hospitalist Progress Note ---
Date of Service December 09, 2020 Assessment & Plan (1) Diverticulitis of sigmoid colon: Plan: Patient is a 35 yr male with H/O diverticulitis, history of epilepsy, chronic idiopathic constipation and other medical problems with abdominal pain x 6 days that has slowly worsened and outpatient CT abd/pelvis showed sigmoid diverticulitis with possible microperforation. Acute diverticulitis with microperforation H/O diverticulitis with pelvic abscess in 2019 requiring IR drainage -CT ABD:Sigmoid diverticulitis with surrounding fat stranding and free air, favored to represent perforated diverticulitis, although residua from prior perforated abscess is possible. No drainable fluid collection is seen. Continue IV fluids Zosyn transitioned to Augmentin Diet advanced to Low fiber diet We will need to follow-up with Dr. Bolden given history of recurrent div erticulitis for possible sigmoid colectomy Appreciate surgery input Plan to discharge home today if tolerated lunch. Diarrhea Likely due to antibiotics Check stool for C. difficile Keep hydrated Hypokalemia Replace electrolytes as needed (2) Epilepsy: Plan: Remote history in his teens. Not on antiepileptic medication Gilbert's syndrome As per records Monitor DVT Px: SCDs Code status: FULL CODE Admission and Anticipated Discharge Date Admission Date: December 06, 2020 Subjective Patient is seen and examined at bedside Doing well today Tolerated low fiber diet Discussed with surgery today Diarrhea improving Denies nausea, vomiting, abdominal pain, chest pain, dyspnea Review of Systems Review of Systems: All systems reviewed & are unremarkable except as noted in Subjective Physical Exam Physical Exam: Physical Exam: Vitals signs as noted above General Appearance:Moderately built and nourished, no apparent distress Head: normocephalic, Atraumatic Eyes: normal inspection, EOMI Neck: supple, Trachea midline Respiratory/Chest: Normal breath sounds, CTA, No accessory muscle use Cardiovascular: S1, S2, No murmur Abdomen/GI:Soft, Non tender, no guarding, no rigidity, bowel sounds present Extremities/Musculoskeletal:normal inspection, no edema Neurologic/Psych:AAOX3, grossly no focal neurological deficits Skin: normal color, warm Results & Data Results & Data ([facility]) Vital Signs (Past 12 Hours) Vital Signs Temp Pulse Pulse Resp BP Pulse Ox 12/09/20 07:40 36.6 C 65 16 126/77 99 12/09/20 03:42 36.7 C 67 18 127/83 98 12/09/20 00:24 64 12/08/20 23:09 36.8 C 55 L 16 134/81 98 Laboratory Results Short CBC 12/09/20 Range/Units 05:52 WBC 7.90 (4.8-10.8) K/uL Hgb 14.2 (14.0-18.0) g/dL Hct 41.9 L (42-52) % Plt Count 252 (130-400) K/uL BMP 12/09/20 12/09/20 05:52 07:38 Sodium 141 Potassium 4.0 D Chloride 111 H Carbon Dioxide 23 BUN 7 Creatinine 0.88 Glucose 86 Calcium 8.7 Liver Function 12/09/20 12/09/20 Range/Units 05:52 07:38 Total Bilirubin 0.9 (0.2-1) mg/dl AST 13 L (15-37) U/L ALT 27 (12-78) U/L Alkaline Phosphatase 53 (45-117) U/L Albumin 3.3 L (3.4-5.0) gm/dl
--- NOTE | 2020-12-09 10:16 | Discharge Summary ---
Date of Service December 09, 2020 Admission HPI Per Admitting Provider This is a 35yo M with PMH of diverticulitis, history of epilepsy, chronic idiopathic constipation and other medical problems with abdominal pain x 6 days that has slowly worsened. Was painful enough that patient has been staying home from work to rest. Has improved while on liquid diet of water and broth. Was seen for this in [facility] yesterday and had CT abd/pelvis this morning. Was called with results and directed to ED for further treatment. Endorses chills, no fever. Minimal pain at rest. One episode of vomiting 2 days ago. Small bowel movements over past few days. CT abd/pelvis stat read from clinic showing sigmoid diverticulitis with surrounding fat stranding and free air, favored to represent perforated diverticulitis although residual from prior perforated abscess possible. No drainable fluid collection is seen. History of diverticulitis with abscess 2 years ago requiring IR abscess drainage and then a more mild occurrence last year resolved with PO meds. Denies lightheadedness, headache, CP, palpitations, shortness of breath, nausea, dysuria or diarrhea. Admission Exam Per Admitting Provider Physical Exam: Vitals signs as noted above General Appearance:Moderately built and nourished, no apparent distress Head: normocephalic, Atraumatic Eyes: normal inspection, EOMI Neck: supple, Trachea midline Respiratory/Chest: Normal breath sounds, CTA, No accessory muscle use Cardiovascular: S1, S2, No murmur Abdomen/GI:Soft, LLQ tender, no guarding, no rigidity, bowel sounds present Extremities/Musculoskeletal:normal inspection, no edema Neurologic/Psych:AAOX3, grossly no focal neurological deficits Skin: normal color, warm Principal Diagnosis Acute diverticulitis with microperforation Hypokalemia Discharge Data Allergies Allergy/AdvReac Type Severity Reaction Status Date / Time No Known Allergies Allergy Unverified 12/06/20 14:19 Consultations 12/06/20 15:41 ED Decision to Admit Stat 12/06/20 16:53 Consult General Surgery Routine Hospital Course (1) Diverticulitis of sigmoid colon: Patient is a 35 yr male with H/O diverticulitis, history of epilepsy, chronic idiopathic constipation and other medical problems with abdominal pain x 6 days that has slowly worsened and outpatient CT abd/pelvis showed sigmoid diver ticulitis with possible microperforation. Acute diverticulitis with microperforation H/O diverticulitis with pelvic abscess in 2019 requiring IR drainage -CT ABD:Sigmoid diverticulitis with surrounding fat stranding and free air, favored to represent perforated diverticulitis, although residua from prior perforated abscess is possible. No drainable fluid collection is seen. Continue IV fluids Zosyn transitioned to Augmentin Diet advanced to Low fiber diet We will need to follow-up with Dr. Bolden given history of recurrent diverticulitis for possible sigmoid colectomy Appreciate surgery input Plan to discharge home today if tolerated lunch. Diarrhea Likely due to antibiotics Check stool for C. difficile Keep hydrated Hypokalemia Replace electrolytes as needed (2) Epilepsy: Remote history in his teens. Not on antiepileptic medication Gilbert's syndrome As per records Monitor DVT Px: SCDs Code status: FULL CODE Total Time Total Time Spent Total Time Spent (In Minutes): 42 minutes Discharge Plan Discharge Items Patient Disposition: Home - Self-Care Reason For Visit: DIVERTICULITIS WITH MICROPERFORATION Discharge Diagnosis: Acute diverticulitis with microperforation Hypokalemia Activity: Per Instructions section Exercise/Sports: Wait until after follow-up appointment Non-emergency contact: Primary Care Provider and Surgeon Call non-emergency contact if: you have any medication questions, your symptoms worsen, your pain is concerning for you and you have a fever Follow-up/Referrals: Tai Castano MD [Primary Care Provider] - Diet: Low Fiber and Lactose Intolerant Addtl Attending Provider Instructions: Follow up with your Primary Care Physician in 1 week Follow up with your surgeon Dr. Bolden as advised for management of recurrent diverticulitis Complete the antibiotic course as prescribed Seek immediate medical attention if your symptoms reoccur or worsen Please take all medications as instructed on discharge list below. Please call if you have any questions or problems. You can reach a [facility] hospitalist on duty at [facility] 24 hours a day by calling [phone] Pending Studies at Discharge: No Stand-Alone Forms: My [facility] Health, Smoking Cessation Medications and DC Order Prescriptions: New amoxicillin-pot clavulanate [Augmentin] 875-125 mg Tablet 1 tab PO BIDM Qty: 20 RF: 0 Floranex 100 million cell Granules In Packet 1 g PO TIDM Qty: 30 RF: 0 No Action No Known Home Medications RF: 0 Discharge Orders: Discharge Order (Routine); Ordered 12/09/20 Ordered By: Aren Allan Admission Data Admit Date/Time: 12/06/20 15:50 Attending Provider: Aren Allan Admit Provider: Aren Allan Primary Care Provider: Tai Castano Other Providers: Yvonne Paulino ; Aren Allan Other Interventions: Discharge Summary Assessment (RN) Last Done: 12/09/20 11:12
== END 2020-12-09 11:55 | disposition home or self-care (01) | DRG 392 ==
LOC: ED 13:29 → 2W 15:50